=== PATIENT | female | born 1945 | race Caucasian/White ===

== ENCOUNTER → 2016-08-16 | Outpatient (CLI) | payer MEDICARE, MEDICAID ==
[2016-08-16 10:46] LABS: APPEARANCE,URINE CLEAR; BILIRUBIN,URINE NEGATIVE (NEGATIVE); GLUCOSE, URINE NEGATIVE (NEGATIVE); KETONES,URINE NEGATIVE (NEGATIVE); LEUKOCYTE ESTERASE,URINE NEGATIVE (NEGATIVE); NITRITE,URINE NEGATIVE (NEGATIVE); PROTEIN,URINE NEGATIVE (NEGATIVE); URINE SPECIFIC GRAVITY 1.012; UROBILINOGEN,URINE NEGATIVE mg/dL (<2.0)
[2016-08-16 10:52] LABS: ABSOLUTE EOSINOPHILS # (AUTO) 0.3 10^3/uL (0.0-0.6); ABSOLUTE LYMPHOCYTES (AUTO) 1.8 10^3/uL (0.5-4.7); ABSOLUTE MONOCYTES (AUTO) 0.6 10^3/uL (0.1-1.4); ABSOLUTE NEUT (AUTO) 5.2 10^3/uL (1.7-8.2); BASOPHILS % (AUTO) 0.5 % (0-2); EOSINOPHILS % (AUTO) 3.5 % (0-6); HEMATOCRIT 44.7 % (36.0-47.0); HEMOGLOBIN 14.5 g/dL (12.0-15.5); HGB HCT DIFFERENCE -1.2; LYMPHOCYTES % (AUTO) 22.4 % (13-45); MEAN CORPUSCULAR HEMOGLOBIN 29.9 pg (27.0-33.4); MEAN CORPUSCULAR HGB CONC 32.5 g/dL (32.0-36.0); MEAN CORPUSCULAR VOLUME 92 fl (80-97); MONOCYTES % (AUTO) 7.8 % (3-13); RED BLOOD COUNT 4.85 10^6/uL (3.72-5.28); RED CELL DISTRIBUTION WIDTH 13.2 % (11.5-14.0); SEGMENTED NEUTROPHILS % (AUTO) 65.8 % (42-78)
[2016-08-16 11:23] LABS: ALANINE AMINOTRANSFERASE 33 U/L (9-52); ALBUMIN 4.7 g/dL (3.5-5.0); ALKALINE PHOSPHATASE 77 U/L (38-126); ANION GAP 13 (5-19); ASPARTATE AMINO TRANSFERASE 31 U/L (14-36); BILIRUBIN,TOTAL 0.7 mg/dL (0.2-1.3); BLOOD UREA NITROGEN 15 mg/dL (7-20); CALCIUM 9.9 mg/dL (8.4-10.2); CARBON DIOXIDE 28 mmol/L (22-30); CHLORIDE 100 mmol/L (98-107); CHOLESTEROL 226.07 mg/dL (0-200); CREATININE RESULT 0.84 mg/dL (0.52-1.25); Direct HDL 71 mg/dL (>40); GLUCOSE 90 mg/dL (75-110); POTASSIUM 4.8 mmol/L (3.6-5.0); SODIUM 140.6 mmol/L (137-145); TOTAL PROTEIN 7.3 g/dL (6.3-8.2); TRIGLYCERIDES 86 mg/dL (<150)
[2016-08-16 11:29] LABS: ERYTHROCYTE SEDIMENTATION RATE 21 mm/hr (0-30)
[2016-08-16 11:34] LABS: DIRECT LDL 150 mg/dL (<100)
[2016-08-17 10:38] LABS: HEPATITIS C VIRUS AB <0.1 s/co ratio (0.0-0.9)
== END ==
LOC: OD 09:37
DX: D64.9 Anemia, unspecified (principal); I10 Essential (primary) hypertension; G25.81 Restless legs syndrome; J44.1 Chronic obstructive pulmonary disease with (acute) exacerbation; N64.4 Mastodynia; F03.91 Unspecified dementia, unspecified severity, with behavioral disturbance; M79.7 Fibromyalgia; Z79.899 Other long term (current) drug therapy; J96.11 Chronic respiratory failure with hypoxia; R51 Headache
CPT/HCPCS: 36415; 80053; 80061; 81001; 83036; 83540; 84443; 85025; 85652; 86803; 86804

== ENCOUNTER → 2016-08-16 | Outpatient (CLI) | payer MEDICARE, MEDICAID | LOC: RAD 12:10 | DX: R51 Headache (principal); J44.1 Chronic obstructive pulmonary disease with (acute) exacerbation; J96.11 Chronic respiratory failure with hypoxia; I10 Essential (primary) hypertension; Z79.899 Other long term (current) drug therapy; M79.7 Fibromyalgia; F09 Unspecified mental disorder due to known physiological condition; N61.1 Abscess of the breast and nipple | CPT/HCPCS: 70551; 76641 ==

== ENCOUNTER → 2016-10-08 | Outpatient (CLI) | payer MEDICARE, MEDICAID ==
--- NOTE | 2016-10-08 16:40 | XCELERA REPORT ---
[address] [address] Lower Extremity Arterial Evaluation Name: HERMAN DILLON Age: 70 yrs Gender: Female : 1945 Patient Status: Outpatient Patient Location: Study Date: 10/08/2016 12:17 PM Procedure: A color flow and duplex scan of the lower extremity arteries was performed bilaterally with velocity and waveform anaylsis. Ankle brachial indicies performed. Reason For Study: PVD Ordering Physician: SAMM SINGH Performed By: Grabiel Lemus Measurements and Calculations Right Left GIMP TACKER PSV 132.0 163.0 cm/sec Prox PFA PSV -63.4 -98.5 cm/sec Dist SFA PSV -100.4 -105.0 cm/sec Dist Pop A PSV 53.4 67.2 cm/sec Dist SERVANDO PSV 55.6 42.5 cm/sec Dist CARCASS WASHER PSV 81.0 55.3 cm/sec Micky Pedis PSV 39.2 24.0 cm/sec Right Side Arterial Evaluation Normal velocity and triphasic waveforms noted from the Common Femoral artery to the infrageniculate vessels. 0 % stenosis. Ankle Brachial index is 1.08. Left Side Arterial Evaluation Normal velocity and triphasic waveforms noted from the Common Femoral artery to the Popliteal artery. Biphasic to the infrageniculate vessels. 0-19% stenosis at the infrageniculate vessels. Ankle Brachial index is 1.14. Interpretation Summary No hemodynamically significant lesions in the right lower extremity only, on duplex imaging, at rest. Mild hemodynamically significant lesions in the left lower extremity only, on duplex imaging, at rest. : SAMM SINGH [place]
== END ==
LOC: SP 11:45
DX: I73.9 Peripheral vascular disease, unspecified (principal)
CPT/HCPCS: 93925

== ENCOUNTER → 2017-05-07 | Outpatient (CLI) | payer MEDICARE, MEDICAID ==
[2017-05-07 14:56] LABS: ABSOLUTE EOSINOPHILS # (AUTO) 0.1 10^3/uL (0.0-0.6); ABSOLUTE LYMPHOCYTES (AUTO) 2.3 10^3/uL (0.5-4.7); ABSOLUTE MONOCYTES (AUTO) 0.5 10^3/uL (0.1-1.4); ABSOLUTE NEUT (AUTO) 3.9 10^3/uL (1.7-8.2); BASOPHILS % (AUTO) 0.6 % (0-2); HEMATOCRIT 41.1 % (36.0-47.0); HGB HCT DIFFERENCE 0.9; LYMPHOCYTES % (AUTO) 33.3 % (13-45); MEAN CORPUSCULAR HEMOGLOBIN 30.1 pg (27.0-33.4); MEAN CORPUSCULAR HGB CONC 33.9 g/dL (32.0-36.0); MEAN CORPUSCULAR VOLUME 89 fl (80-97); MONOCYTES % (AUTO) 7.8 % (3-13); RED BLOOD COUNT 4.64 10^6/uL (3.72-5.28); RED CELL DISTRIBUTION WIDTH 13.1 % (11.5-14.0); SEGMENTED NEUTROPHILS % (AUTO) 57.3 % (42-78); WHITE BLOOD COUNT 6.9 10^3/uL (4.0-10.5)
[2017-05-07 15:10] LABS: ALANINE AMINOTRANSFERASE 35 U/L (9-52); ALBUMIN 4.4 g/dL (3.5-5.0); ALKALINE PHOSPHATASE 75 U/L (38-126); ANION GAP 13 (5-19); ASPARTATE AMINO TRANSFERASE 30 U/L (14-36); BILIRUBIN,DIRECT 0.3 mg/dL (0.0-0.4); BILIRUBIN,TOTAL 0.6 mg/dL (0.2-1.3); BLOOD UREA NITROGEN 12 mg/dL (7-20); CALCIUM 9.6 mg/dL (8.4-10.2); CARBON DIOXIDE 27 mmol/L (22-30); CHLORIDE 105 mmol/L (98-107); CHOLESTEROL 203.07 mg/dL (0-200); CREATININE RESULT 0.75 mg/dL (0.52-1.25); Direct HDL 60 mg/dL (>40); GLUCOSE 91 mg/dL (75-110); MAGNESIUM 1.8 mg/dL (1.6-2.3); POTASSIUM 4.5 mmol/L (3.6-5.0); SODIUM 144.7 mmol/L (137-145); TOTAL PROTEIN 6.8 g/dL (6.3-8.2); TRIGLYCERIDES 67 mg/dL (<150)
[2017-05-07 15:21] LABS: DIRECT LDL 125 mg/dL (<100)
== END ==
LOC: OD 14:13
PROVIDERS: ATTEND Internal Medicine
DX: E03.9 Hypothyroidism, unspecified (principal); I10 Essential (primary) hypertension; J44.9 Chronic obstructive pulmonary disease, unspecified; R53.83 Other fatigue; K21.9 Gastro-esophageal reflux disease without esophagitis
CPT/HCPCS: 36415; 80053; 80061; 83735; 84443; 85025

== ENCOUNTER 2017-08-19 14:18 | Emergency (ER) | payer MEDICARE, MEDICAID ==
[2017-08-19] MEDS ORDERED: IPRATROPIUM/ALBUTEROL 0.5-2.5 MG/3 ML AMPUL NEB ONE (15:44)
--- NOTE | 2017-08-19 15:45 | ER Document Report ---
ED Medical Screen (RME) - General Chief Complaint: Shortness Of Breath Stated Complaint: COUGH Time Seen by Provider: 08/19/17 15:43 Notes: Patient states over the last month she has been having progressively increasing shortness of breath and chest tightness. She states she has been on prednisone , amoxicillin, Zithromax, and doxycycline with no relief. She also has had no relief from her at home medications include inhalers. TRAVEL OUTSIDE OF THE [place] IN LAST 30 DAYS: No - Related Data Allergies/Adverse Reactions: latex Allergy (Severe, Verified 05/11/16 00:07) vomiting. itching codeine Adverse Reaction (Severe, Verified 05/11/16 00:07) vomiting, itching Peanuts Allergy (Severe, Uncoded 05/28/14 18:38) Throat swelling NICKEL Allergy (Mild, Uncoded 05/28/14 18:38) rash Past Medical History - Social History Chew tobacco use (# tins/day): No Frequency of alcohol use: None Drug Abuse: None - Past Medical History Cardiac Medical History: Reports: Hx Hypercholesterolemia, Hx Hypertension Denies: Hx Atrial Fibrillation, Hx Congestive Heart Failure, Hx Coronary Artery Disease, Hx Heart Attack, Hx Peripheral Vascular Disease, Hx Pulmonary Embolism, Hx Heart Murmur Pulmonary Medical History: Reports: Hx Asthma, Hx Bronchitis, Hx COPD - chronic Denies: Hx Pneumonia, Hx Respiratory Failure, Hx Sleep Apnea, Hx Tuberculosis Endocrine Medical History: Reports: Hx Hypothyroidism. Denies: Hx Graves' Disease Renal/ Medical History: Reports: Hx Kidney Stones. Denies: Hx End Stage Renal Disease, Hx Peritoneal Dialysis Malignancy Medical History: Denies: Hx Lung Cancer GI Medical History: Reports: Hx Gastroesophageal Reflux Disease, Hx Hiatal Hernia. Denies: Hx Crohn's Disease, Hx Irritable Bowel, Hx Liver Failure, Hx Pancreatitis, Hx Ulcer Musculoskeltal Medical History: Reports Hx Fibromyalgia, Denies Hx Muscular Dystrophy Psychiatric Medical History: Reports: Hx Anxiety, Hx Depression Traumatic Medical History: Denies: Hx Fractures Past Surgical History: Reports: Hx Appendectomy, Hx Breast Surgery - breast augmentation x2, Hx Cholecystectomy, Hx Hysterectomy, Hx Orthopedic Surgery - toe surgery R foot, Hx Tonsillectomy, Hx Tubal Ligation. Denies: Hx Bowel Surgery, Hx Colostomy, Hx Coronary Artery Bypass Graft, Hx Gastric Bypass Surgery, Hx Mastectomy, Hx Pacemaker - Immunizations Hx Diphtheria, Pertussis, Tetanus Vaccination: No Physical Exam - Vital signs Vitals: Temp Pulse Resp BP Pulse Ox 98.6 F 94 20 128/81 H 97 08/19/17 14:45 08/19/17 14:45 08/19/17 14:45 08/19/17 14:45 08/19/17 14:45 Course - Vital Signs Vital signs: Temp Pulse Resp BP Pulse Ox 98.6 F 94 20 128/81 H 97 08/19/17 14:45 08/19/17 14:45 08/19/17 14:45 08/19/17 14:45 08/19/17 14:45
--- NOTE | 2017-08-19 16:11 | RADIOLOGY REPORT (SQ) ---
EXAM DESCRIPTION: CHEST SINGLE VIEW COMPLETED DATE/TIME: 08/19/2017 4:02 pm REASON FOR STUDY: cough COMPARISON: 07/06/2016 NUMBER OF VIEWS: One view. TECHNIQUE: Single frontal radiographic view of the chest acquired. LIMITATIONS: None. FINDINGS: LUNGS AND PLEURA: No opacities, masses or pneumothorax. No pleural effusion. Attenuated bl ood vessels and flattened lion-diaphragms. MEDIASTINUM AND HILAR STRUCTURES: No masses. Contour normal. HEART AND VASCULAR STRUCTURES: Heart normal in size. Normal vasculature. BONES: No acute findings. HARDWARE: None in the chest. OTHER: No other significant finding. IMPRESSION: COPD. NO ACUTE RADIOGRAPHIC FINDING IN THE CHEST. TECHNICAL DOCUMENTATION: JOB ID: [id number] [employer]- All Rights Reserved
[2017-08-19 16:40] LABS: ABSOLUTE EOSINOPHILS # (AUTO) 0.1 10^3/uL (0.0-0.6); ABSOLUTE LYMPHOCYTES (AUTO) 2.3 10^3/uL (0.5-4.7); ABSOLUTE MONOCYTES (AUTO) 0.8 10^3/uL (0.1-1.4); ABSOLUTE NEUT (AUTO) 4.9 10^3/uL (1.7-8.2); BASOPHILS % (AUTO) 0.4 % (0-2); EOSINOPHILS % (AUTO) 1.6 % (0-6); HEMATOCRIT 43.9 % (36.0-47.0); HEMOGLOBIN 14.3 g/dL (12.0-15.5); LYMPHOCYTES % (AUTO) 28.2 % (13-45); MEAN CORPUSCULAR HEMOGLOBIN 29.4 pg (27.0-33.4); MEAN CORPUSCULAR HGB CONC 32.6 g/dL (32.0-36.0); MEAN CORPUSCULAR VOLUME 90 fl (80-97); MONOCYTES % (AUTO) 9.3 % (3-13); PLATELET COUNT 308 10^3/uL (150-450); RED BLOOD COUNT 4.87 10^6/uL (3.72-5.28); RED CELL DISTRIBUTION WIDTH 13.7 % (11.5-14.0); SEGMENTED NEUTROPHILS % (AUTO) 60.5 % (42-78); TOTAL CELLS COUNTED % (AUTO) 100 %; WHITE BLOOD COUNT 8.1 10^3/uL (4.0-10.5)
[2017-08-19 16:56] LABS: ALANINE AMINOTRANSFERASE 32 U/L (9-52); ALBUMIN 4.4 g/dL (3.5-5.0); ALKALINE PHOSPHATASE 70 U/L (38-126); ANION GAP 8 (5-19); ASPARTATE AMINO TRANSFERASE 27 U/L (14-36); BILIRUBIN,DIRECT 0.4 mg/dL (0.0-0.4); BILIRUBIN,TOTAL 0.5 mg/dL (0.2-1.3); BLOOD UREA NITROGEN 15 mg/dL (7-20); CALCIUM 10.1 mg/dL (8.4-10.2); CARBON DIOXIDE 28 mmol/L (22-30); CHLORIDE 104 mmol/L (98-107); GLUCOSE 99 mg/dL (75-110); POTASSIUM 4.7 mmol/L (3.6-5.0); SODIUM 140.4 mmol/L (137-145)
[2017-08-19 17:08] LABS: NT PRO BNP 142 pg/mL (5-900)
[2017-08-19 17:09] LABS: TROPONIN I < 0.012 ng/mL
[2017-08-19] MEDS ORDERED: MAG HYDROX/AL HYDROX/SIMETH SUSP 30 ML UDCUP PO ONE (20:14)
[2017-08-19] MEDS ORDERED: LIDOCAINE 2% VISCOUS SOLN 20 ML UDCUP PO ONE (20:14)
[2017-08-19] MEDS ORDERED: METOCLOPRAMIDE HCL ORAL SOLN 10 MG/10 ML UDCUP PO ONE (20:14)
[2017-08-19] MEDS ORDERED: FAMOTIDINE 20 MG TABLET PO ONE (20:14)
--- NOTE | 2017-08-19 20:19 | ER Document Report ---
ED General - General Chief Complaint: Shortness Of Breath Stated Complaint: COUGH Time Seen by Provider: 08/19/17 15:43 Notes: Patient is a 71-year-old female who presents with complaints of burping a white , bitter, clear mucus into her throat repeatedly over the last 3 weeks. She states that when this occurs it feels like she cannot breathe. Seems to be worse with exertion and when she lies flat. She notes that she has been treated repeatedly for these symptoms over the past 1 month with steroids and antibiotics for a presumed diagnosis of COPD exacerbation. However she notes that when she takes her inhalers it does not seem to help her symptoms. She reports that she has a history of similar symptoms in the past and used to take a PPI but discontinued it due to muscle aches. She believes that she has had symptoms since that time. She denies any focal abdominal pain with the exception of her epigastrium. She denies any melena, hematochezia or hematemesis. No fever or constitutional symptoms. She denies any chest pain. TRAVEL OUTSIDE OF THE [place] IN LAST 30 DAYS: No - Related Data Allergies/Adverse Reactions: latex Allergy (Severe, Verified 05/11/16 00:07) vomiting. itching codeine Adverse Reaction (Severe, Verified 05/11/16 00:07) vomiting, itching Peanuts Allergy (Severe, Uncoded 05/28/14 18:38) Throat swelling NICKEL Allergy (Mild, Uncoded 05/28/14 18:38) rash Past Medical History - General Information source: Patient - Social History Smoking Status: Former Smoker Chew tobacco use (# tins/day): No Frequency of alcohol use: None Drug Abuse: None Lives with: Family Family History: CAD Patient has suicidal ideation: No Patient has homicidal ideation: No - Past Medical History Cardiac Medical History: Reports: Hx Hypercholesterolemia, Hx Hypertension Denies: Hx Atrial Fibrillation, Hx Congestive Heart Failure, Hx Coronary Artery Disease, Hx Heart Attack, Hx Peripheral Vascular Disease, Hx Pulmonary Embolism, Hx Heart Murmur Pulmonary Medical History: Reports: Hx Asthma, Hx Bronchitis, Hx COPD - chronic Denies: Hx Pneumonia, Hx Respiratory Failure, Hx Sleep Apnea, Hx Tuberculosis Endocrine Medical History: Reports: Hx Hypothyroidism. Denies: Hx Graves' Disease Renal/ Medical History: Reports: Hx Kidney Stones. Denies: Hx End Stage Renal Disease, Hx Peritoneal Dialysis Malignancy Medical History: Denies: Hx Lung Cancer GI Medical History: Reports: Hx Gastroesophageal Reflux Disease, Hx Hiatal Hernia. Denies: Hx Crohn's Disease, Hx Irritable Bowel, Hx Liver Failure, Hx Pancreatitis, Hx Ulcer Musculoskeltal Medical History: Reports Hx Fibromyalgia, Denies Hx Muscular Dystrophy Psychiatric Medical History: Reports: Hx Anxiety, Hx Depression Traumatic Medical History: Denies: Hx Fractures Past Surgical History: Reports: Hx Appendectomy, Hx Breast Surgery - breast augmentation x2, Hx Cholecystectomy, Hx Hysterectomy, Hx Orthopedic Surgery - toe surgery R foot, Hx Tonsillectomy, Hx Tubal Ligation. Denies: Hx Bowel Surgery, Hx Colostomy, Hx Coronary Artery Bypass Graft, Hx Gastric Bypass Surgery, Hx Mastectomy, Hx Pacemaker - Immunizations Hx Diphtheria, Pertussis, Tetanus Vaccination: No Hx Pneumococcal Vaccination: 07/08/07 Review of Systems - Review of Systems Notes: Constitutional: Negative for fever. HENT: Negative for sore throat. Eyes: Negative for visual changes. Cardiovascular: Negative for chest pain. Respiratory: Positive for shortness of breath. Gastrointestinal: Positive for epigastric abdominal pain and vomiting Genitourinary: Negative for dysuria. Musculoskeletal: Negative for back pain. Skin: Negative for rash. Neurological: Negative for headaches, weakness or numbness. 10 point ROS negative except as marked above and in HPI. Physical Exam - Vital signs Vitals: Temp Pulse Resp BP Pulse Ox 98.6 F 94 20 128/81 H 97 08/19/17 14:45 08/19/17 14:45 08/19/17 14:45 08/19/17 14:45 08/19/17 14:45 Interpretation: Normal Notes: PHYSICAL EXAMINATION: GENERAL: Well-appearing, well-nourished and in no acute distress. HEAD: Atraumatic, normocephalic. EYES: Pupils equal round and reactive to light, extraocular movements intact, sclera anicteric, conjunctiva are normal. ENT: nares patent, oropharynx clear without exudates. Moist mucous membranes. NECK: Normal range of motion, supple without lymphadenopathy LUNGS: Breath sounds clear to auscultation bilaterally and equal. No wheezes rales or rhonchi. HEART: Regular rate and rhythm without murmurs ABDOMEN: Soft, epigastric abdominal tenderness no other localized areas of tenderness, normoactive bowel sounds. No guarding, no rebound. No masses appreciated. EXTREMITIES: Normal range of motion, no pitting or edema. No cyanosis. NEUROLOGICAL: No focal neurological deficits. Moves all extremities spontaneously and on command. PSYCH: Normal mood, normal affect. SKIN: Warm, Dry, normal turgor, no rashes or lesions noted. Course - Re-evaluation Re-evalutation: 08/19/17 20:15 Patient presents with epigastric abdominal pain with associated reflux symptoms most consistent with likely gastritis. Patient has been on steroids and antibiotics and was continuously for the past 6 weeks for possible COPD exacerbation. Patient has no signs of respiratory distress whatsoever, vitals within normal limits she is 100% on room air, no wheezing or tachypnea. Her chest x-ray is clear. Labs are unremarkable. Her main complaint is that she has a burning sensation in her epigastrium that often feels that she is coughing up a acidic mucousy substance. She said that this started after being on medicines for COPD for prolonged period of time which would make sense in the context of all the steroids she has received. She was started on famotidine and Carafate. She has no focal abdominal tenderness on examination to suggest a biliary pathology. No LFT changes. Based on history and exam, I do not suspect ACS, pulmonary embolus, SBO, mesenteric ischemia, acute pancreatitis, biliary pathology, or an abdominal aortic dissection. EKG and troponin are normal. No indication for current use of steroids today as patient does not appear to be having a COPD exacerbation. Patient has had improvement of symptoms here with a GI cocktail. At this time will discharge with return precautions and follow-up recommendations. Verbal discharge instructions given a the bedside and opportunity for questions given. Medication warnings reviewed. Patient is in agreement with this plan and has verbalized understanding of return precautions and the need for primary care follow-up in the next 24-72 hours. - Vital Signs Vital signs: Temp Pulse Resp BP Pulse Ox 98.6 F 94 21 H 159/80 H 98 08/19/17 14:45 08/19/17 14:45 08/19/17 20:01 08/19/17 20:01 08/19/17 20:01 - Laboratory Result Diagrams: 08/19/17 16:23 08/19/17 16:23 Laboratory results interpreted by me: 08/19/17 16:23 Est GFR (Non-Af Amer) 57 L - Diagnostic Test Radiology reviewed: Image reviewed, Reports reviewed Radiology results interpreted by me: 08/19/17 20:16 Chest x-ray: No acute infiltrate or pneumothorax - EKG Interpretation by Me Additional EKG results interpreted by me: 08/20/17 04:16 Normal sinus rhythm. Rate 93. No ST elevations or depressions. QTC is 433. Discharge - Discharge Clinical Impression: Exposure to the flu, Reflux esophagitis, Shortness of breath Condition: Good Disposition: HOME, SELF-CARE Additional Instructions: Your symptoms appear to be most consistent with stomach or upper intestinal irritation with associated reflux into your esophagus. Please begin taking famotidine 40 mg in the morning and 40 mg at night. This medicine can be purchased directly [id number]. You may also take medicine such as Pepto- Bismol or Tums to assist with your pain. Please avoid acidic and spicy foods including coffee, tea, sodas, fruit juices, citrus fruits, wild berries, and tomato based foods. We are not restarting steroids today as it does not appear that your COPD is currently an active part of your problem and the recurrent use of steroids and antibiotics may be the primary cause of your symptoms. Please return to emergency department immediately if you have worsening of your pain, shortness of breath, vomiting, become unable to exert yourself due to pain or difficulty breathing, you pass out, or have any pain that radiates into your arms, jaw, or back. Please also return if you have any additional symptoms that are concerning to you. Prescriptions: Oseltamivir Phosphate [Tamiflu 75 mg Capsule] 75 mg PO DAILY #10 capsule Sucralfate [Carafate 1 gm Tablet] 1 gm PO ACHS #120 tablet Referrals: RANDALL SHARP MD [Primary Care Provider] - Follow up as needed
[2017-08-19 20:22] VITALS: BP 159/80
--- NOTE | 2017-08-20 09:26 | EKG REPORT ---
SEVERITY:- NORMAL ECG - SINUS RHYTHM : Confirmed by: Osmin Christy 20-Aug-2017 09:26:10
== END 2017-08-19 20:35 | disposition home or self-care (01) ==
LOC: ER 14:18
DX: K21.0 Gastro-esophageal reflux disease with esophagitis (principal); R06.02 Shortness of breath; R05 Cough; R10.13 Epigastric pain; Z87.891 Personal history of nicotine dependence
CPT/HCPCS: 93005; 94640; 99285; 36415; 85025; 80053; 84484; 83880; 71045; 93010; J3490; A9270 ×2; J7620

== ENCOUNTER → 2017-10-29 | Outpatient (CLI) | payer MEDICARE, MEDICAID ==
[2017-10-29 13:51] LABS: ALANINE AMINOTRANSFERASE 38 U/L (9-52); ALBUMIN 4.5 g/dL (3.5-5.0); ALKALINE PHOSPHATASE 70 U/L (38-126); ANION GAP 9 (5-19); ASPARTATE AMINO TRANSFERASE 33 U/L (14-36); BILIRUBIN,DIRECT 0.3 mg/dL (0.0-0.4); BILIRUBIN,TOTAL 0.5 mg/dL (0.2-1.3); BLOOD UREA NITROGEN 14 mg/dL (7-20); CARBON DIOXIDE 31 mmol/L (22-30); CHLORIDE 103 mmol/L (98-107); GLUCOSE 95 mg/dL (75-110); POTASSIUM 5.4 mmol/L (3.6-5.0); TOTAL PROTEIN 7.1 g/dL (6.3-8.2)
== END ==
LOC: OD 12:16
PROVIDERS: ATTEND Family Medicine
DX: E03.9 Hypothyroidism, unspecified (principal); I10 Essential (primary) hypertension
CPT/HCPCS: 36415; 80053; 84443

== ENCOUNTER → 2017-11-14 | Outpatient (CLI) | payer MEDICARE, MEDICAID ==
--- NOTE | 2017-11-14 16:09 | RADIOLOGY REPORT (SQ) ---
EXAM DESCRIPTION: CT CHEST WITHOUT COMPLETED DATE/TIME: 11/14/2017 3:51 pm REASON FOR STUDY: R06.02 SHORTNESS OF BREATH R06.02 SHORTNESS OF BREATH COMPARISON: 11/24/2011. TECHNIQUE: CT scan performed of the chest without intravenous contrast. Images reviewed with lung, soft tissue and bone windows. Reconstructed coronal and sagittal MPR images reviewed. All images st ored on PACS. All CT scanners at this facility use dose modulation, iterative reconstruction, and/or weight based d osing when appropriate to reduce radiation dose to as low as reasonably achievable (ALARA). [facility]: Dose Right [facility]: CareDose [facility]: Dose Right [facility]: Teradose 4D [facility]: efectivox RADIATION DOSE: CT Rad equipment meets quality standard of care and radiation dose reduction techniq ues were employed. CTDIvol: 7.8 mGy. DLP: 279 mGy-cm. mGy. LIMITATIONS: No technical limitations. FINDINGS: LUNGS AND PLEURA: Centrilobular emphysema. No fibrosis. No pleural effusions. HILAR AND MEDIASTINAL STRUCTURES: No identified masses or abnormal nodes. No obvious aneurysm. HEART AND VASCULAR STRUCTURES: No aneurysm. No pericardial effusion. UPPER ABDOMEN: No significant findings. Limited exam. THYROID AND OTHER SOFT TISSUES: No masses. No adenopathy. BONES: No significant finding. HARDWARE: None in the chest. OTHER: No other significant findings. IMPRESSION: COPD. No acute findings in the chest. TECHNICAL DOCUMENTATION: JOB ID: [id number] Quality ID # [id number]: Final reports with documentation of one or more dose reduction techniques (e.g., Au tomated exposure control, adjustment of the mA and/or kV according to patient size, use of iterative reconstruction technique) 2010 [employer]- All Rights Reserved Reading location - IP/workstation name: [email or web address]
== END ==
LOC: RAD 15:59
PROVIDERS: ATTEND Physician Assistant
DX: J44.9 Chronic obstructive pulmonary disease, unspecified (principal); R06.02 Shortness of breath
CPT/HCPCS: 71250

== ENCOUNTER → 2018-02-17 | Outpatient (CLI) | payer MEDICARE, MEDICAID ==
[2018-02-17 17:16] LABS: ANION GAP 13 (5-19); BLOOD UREA NITROGEN 13 mg/dL (7-20); CALCIUM 9.2 mg/dL (8.4-10.2); CARBON DIOXIDE 26 mmol/L (22-30); CHLORIDE 106 mmol/L (98-107); GLUCOSE 88 mg/dL (75-110); POTASSIUM 4.4 mmol/L (3.6-5.0); SODIUM 145.1 mmol/L (137-145)
== END ==
LOC: OD 16:15
PROVIDERS: ATTEND Family Medicine
DX: E03.8 Other specified hypothyroidism (principal); E87.5 Hyperkalemia
CPT/HCPCS: 36415; 80048; 84443

== ENCOUNTER → 2018-04-07 | Outpatient (CLI) | payer MEDICARE, MEDICAID | LOC: OD 14:17 | PROVIDERS: ATTEND Family Medicine | DX: E03.9 Hypothyroidism, unspecified (principal) | CPT/HCPCS: 36415; 84443 ==

== ENCOUNTER → 2018-06-03 | Outpatient (CLI) | payer MEDICARE, MEDICAID ==
--- NOTE | 2018-06-03 16:09 | RADIOLOGY REPORT (SQ) ---
EXAM DESCRIPTION: CHEST PA/LATERAL COMPLETED DATE/TIME: 06/03/2018 3:45 pm REASON FOR STUDY: COPD;COUGH J44.1 CHRONIC OBSTRUCTIVE PULMONARY DISEASE W (ACUTE) EXACER R05 COUG H COMPARISON: 08/19/2017. NUMBER OF VIEWS: Two view. TECHNIQUE: Frontal and lateral radiographic views of the chest acquired. LIMITATIONS: None. FINDINGS: LUNGS AND PLEURA: No opacities, masses or pneumothorax. No pleural effusion. Attenuated bl ood vessels and flattened lion-diaphragms. MEDIASTINUM AND HILAR STRUCTURES: No masses. No contour abnormalities. HEART AND VASCULAR STRUCTURES: Heart normal in size and contour. No evidence for failure. BONES: No acute findings. HARDWARE: None in the chest. OTHER: No other significant finding. IMPRESSION: COPD. NO ACUTE RADIOGRAPHIC FINDING IN THE CHEST. TECHNICAL DOCUMENTATION: JOB ID: [id number] [email or web address]- All Rights Reserved Reading location - IP/workstation name: [email or web address]
== END ==
LOC: OD 15:34
PROVIDERS: ATTEND Family Medicine Geriatric Medicine
DX: J44.1 Chronic obstructive pulmonary disease with (acute) exacerbation (principal); R05 Cough
CPT/HCPCS: 71046

== ENCOUNTER → 2018-06-09 | Outpatient (CLI) | payer MEDICARE, MEDICAID ==
--- NOTE | 2018-06-09 15:05 | RADIOLOGY REPORT (SQ) ---
EXAM DESCRIPTION: CHEST PA/LATERAL COMPLETED DATE/TIME: 06/09/2018 2:50 pm REASON FOR STUDY: PRODUCTIVE COUGH COMPARISON: Two-view chest 06/03/2018 CT chest 11/14/2017 EXAM PARAMETERS: NUMBER OF VIEWS: two views TECHNIQUE: Digital Frontal and Lateral radiographic views of the chest acquired. RADIATION DOSE: NA LIMITATIONS: none FINDINGS: LUNGS AND PLEURA: Obstructive lung disease with hyperinflation and hyperlucency. Flatteni ng of the hemidiaphragms. No acute infiltrates. No pleural effusion or pneumothorax. MEDIASTINUM AND HILAR STRUCTURES: No masses or contour abnormalities. HEART AND VASCULAR STRUCTURES: Heart normal size. No evidence for failure. BONES: Osteoporotic without thoracic compression deformity HARDWARE: Clips right upper quadrant post cholecystectomy OTHER: No other significant finding. IMPRESSION: Obstructive lung disease. No acute infiltrates TECHNICAL DOCUMENTATION: JOB ID: [id number] [employer]- All Rights Reserved Reading location - IP/workstation name: [email or web address]
== END ==
LOC: OD 14:40
PROVIDERS: ATTEND Family Medicine
DX: J44.9 Chronic obstructive pulmonary disease, unspecified (principal); R05 Cough
CPT/HCPCS: 71046

== ENCOUNTER 2018-08-08 15:02 | Emergency (ER) | payer MEDICARE, MEDICAID ==
[2018-08-08 16:36] LABS: ABSOLUTE LYMPHOCYTES (AUTO) 0.6 10^3/uL (0.5-4.7); ABSOLUTE MONOCYTES (AUTO) 0.5 10^3/uL (0.1-1.4); ABSOLUTE NEUT (AUTO) 4.4 10^3/uL (1.7-8.2); BASOPHILS % (AUTO) 0.1 % (0-2); HEMATOCRIT 43.4 % (36.0-47.0); HEMOGLOBIN 14.6 g/dL (12.0-15.5); LYMPHOCYTES % (AUTO) 11.4 % (13-45); MEAN CORPUSCULAR HEMOGLOBIN 30.5 pg (27.0-33.4); MEAN CORPUSCULAR HGB CONC 33.7 g/dL (32.0-36.0); MEAN CORPUSCULAR VOLUME 91 fl (80-97); MONOCYTES % (AUTO) 9.1 % (3-13); PLATELET COUNT 359 10^3/uL (150-450); RED BLOOD COUNT 4.79 10^6/uL (3.72-5.28); RED CELL DISTRIBUTION WIDTH 13.2 % (11.5-14.0); SEGMENTED NEUTROPHILS % (AUTO) 79.4 % (42-78); TOTAL CELLS COUNTED % (AUTO) 100 %; WHITE BLOOD COUNT 5.6 10^3/uL (4.0-10.5)
[2018-08-08 16:47] LABS: ALANINE AMINOTRANSFERASE 21 U/L (9-52); ALBUMIN 4.4 g/dL (3.5-5.0); ALKALINE PHOSPHATASE 64 U/L (38-126); ANION GAP 11 (5-19); ASPARTATE AMINO TRANSFERASE 25 U/L (14-36); BILIRUBIN,DIRECT 0.2 mg/dL (0.0-0.4); BILIRUBIN,TOTAL 0.3 mg/dL (0.2-1.3); BLOOD UREA NITROGEN 20 mg/dL (7-20); CALCIUM 9.3 mg/dL (8.4-10.2); CARBON DIOXIDE 26 mmol/L (22-30); CHLORIDE 103 mmol/L (98-107); CREATINE KINASE 72 U/L (30-135); GLUCOSE 130 mg/dL (75-110); POTASSIUM 4.6 mmol/L (3.6-5.0); SODIUM 140.4 mmol/L (137-145); TOTAL PROTEIN 6.8 g/dL (6.3-8.2)
[2018-08-08 16:59] LABS: CREATINE KINASE MB 1.63 ng/mL (<4.55)
[2018-08-08 17:03] LABS: FREE T3 2.41 pg/mL (2.77-5.27); FREE T4 (FREE THYROXINE) 1.2 ng/dL (0.78-2.19)
[2018-08-08 17:06] LABS: TROPONIN I < 0.012 ng/mL
[2018-08-08 17:17] LABS: THYROID STIMULATING HORMONE 0.06 uIU/mL (0.47-4.68)
--- NOTE | 2018-08-08 17:28 | RADIOLOGY REPORT (SQ) ---
EXAM DESCRIPTION: CHEST 2 VIEWS COMPLETED DATE/TIME: 08/08/2018 5:17 pm REASON FOR STUDY: short of breath chest pain COMPARISON: 06/09/2018 NUMBER OF VIEWS: Two view. TECHNIQUE: Frontal and lateral radiographic views of the chest acquired. LIMITATIONS: None. FINDINGS: LUNGS AND PLEURA: No opacities, masses or pneumothorax. No pleural effusion. Attenuated bl ood vessels and flattened lion-diaphragms. MEDIASTINUM AND HILAR STRUCTURES: No masses. No contour abnormalities. HEART AND VASCULAR STRUCTURES: Heart normal in size and contour. No evidence for failure. BONES: No acute findings. HARDWARE: None in the chest. OTHER: No other significant finding. IMPRESSION: COPD. NO ACUTE RADIOGRAPHIC FINDING IN THE CHEST. TECHNICAL DOCUMENTATION: JOB ID: [id number] [employer] All Rights Reserved Reading location - IP/workstation name: [email or web address]
--- NOTE | 2018-08-08 18:25 | EKG REPORT ---
SEVERITY:- BORDERLINE ECG - SINUS TACHYCARDIA PROBABLE LEFT ATRIAL ABNORMALITY BORDERLINE T ABNORMALITIES, ANT-LAT LEADS : Confirmed by: Doug Marie MD 08-Aug-2018 18:24:59
--- NOTE | 2018-08-08 18:57 | RADIOLOGY REPORT (SQ) ---
EXAM DESCRIPTION: CT SOFT TISSUE NECK WITH COMPLETED DATE/TIME: 08/08/2018 6:40 pm REASON FOR STUDY: Swelling to left side of neck with difficulty swal COMPARISON: None. TECHNIQUE: Post IV contrasted scanning from skull base through lung apices with review of bone, soft tissue and lung windows. Reconstructed coronal and sagittal MPR images reviewed. All images stored on PACS. All CT scanners at this facility use dose modulation, iterative reconstruction, and/or weight based d osing when appropriate to reduce radiation dose to as low as reasonably achievable (ALARA). [facility]: Dose Right [facility]: CareDose [facility]: Dose Right [facility]: Teradose 4D [facility]: Pure [employer] TV CONTRAST TYPE AND DOSE: contrast/concentration: Isovue 350.00 mg/ml; Total Contrast Delivered: 75.0 ml; Total Saline Delivered: 55.0 ml RENAL FUNCTION: BUN 20 creatinine 0.9 RADIATION DOSE: CT Rad equipment meets quality standard of care and radiation dose reduction techniq ues were employed. CTDIvol: 9.1 mGy. DLP: 260 mGy-cm. . LIMITATIONS: None. FINDINGS: SKULL BASE: Intact. MAJOR SALIVARY GLANDS: The left submandibular gland is enlarged. LYMPHADENOPATHY: No adenopathy. MUCOSAL MASSES OR ASYMMETRY: No mucosal masses or asymmetry. LARYNX/CORDS: No abnormal findings. VASCULAR STRUCTURES: The major vessels are patent. LUNG APICES: Clear. BONES: Intact. THYROID: Normal size. No masses. PARANASAL SINUSES: Clear. OTHER: No other significant finding. IMPRESSION: The left submandibular gland is enlarged. Clinically correlate for Sialadenitis. TECHNICAL DOCUMENTATION: JOB ID: [id number] Quality ID # [id number]: Final reports with documentation of one or more dose reduction techniques (e.g., Au tomated exposure control, adjustment of the mA and/or kV according to patient size, use of iterative reconstruction technique) 2010 [employer]- All Rights Reserved Reading location - IP/workstation name: [email or web address]
--- NOTE | 2018-08-08 22:06 | ER Document Report ---
ED General - General Chief Complaint: Neck Swelling Stated Complaint: Neck pain Time Seen by Provider: 08/08/18 15:47 Primary Care Provider: LUCINA BARBA MD [Primary Care Provider] - Follow up as needed ANDRES RODAS DO [ASSOCIATE] - Follow up as needed Notes: Patient is a 72-year-old female with history of hypertension, COPD, presents complaining of 2-3 days of intermittent left facial and left neck swelling. States that noticed the area was more swollen this morning prompting her to come to the emergency department. States that the swelling is gone down substantially since that time. Food consumption seems to worsen swelling. Nothing seems to improve the swelling except time. No history of similar symptoms in the past. No trauma to the area. No difficulty breathing or swallowing. No fever or constitutional symptoms. Has not seen her primary care doctor regarding today's symptoms or concerns. TRAVEL OUTSIDE OF THE [place] IN LAST 30 DAYS: No - Related Data Allergies/Adverse Reactions: latex Allergy (Severe, Verified 08/08/18 15:03) vomiting. itching codeine Adverse Reaction (Severe, Verified 08/08/18 15:03) vomiting, itching Peanuts Allergy (Severe, Uncoded 05/28/14 18:38) Throat swelling NICKEL Allergy (Mild, Uncoded 05/28/14 18:38) rash Past Medical History - General Information source: Patient - Social History Smoking Status: Former Smoker Frequency of alcohol use: None Drug Abuse: None Lives with: Family Family History: Reviewed & Not Pertinent, CAD Patient has suicidal ideation: No Patient has homicidal ideation: No - Past Medical History Cardiac Medical History: Reports: Hx Hypercholesterolemia, Hx Hypertension Denies: Hx Atrial Fibrillation, Hx Congestive Heart Failure, Hx Coronary Artery Disease, Hx Heart Attack, Hx Peripheral Vascular Disease, Hx Pulmonary Embolism, Hx Heart Murmur Pulmonary Medical History: Reports: Hx Asthma, Hx Bronchitis, Hx COPD - chronic Denies: Hx Pneumonia, Hx Respiratory Failure, Hx Sleep Apnea, Hx Tuberculosis Endocrine Medical History: Reports: Hx Hypothyroidism. Denies: Hx Graves' Disease Renal/ Medical History: Reports: Hx Kidney Stones. Denies: Hx End Stage Renal Disease, Hx Peritoneal Dialysis Malignancy Medical History: Denies: Hx Lung Cancer GI Medical History: Reports: Hx Gastroesophageal Reflux Disease, Hx Hiatal Hernia. Denies: Hx Crohn's Disease, Hx Irritable Bowel, Hx Liver Failure, Hx Pancreatitis, Hx Ulcer Musculoskeletal Medical History: Reports Hx Fibromyalgia, Denies Hx Muscular Dystrophy Psychiatric Medical History: Reports: Hx Anxiety, Hx Depression Traumatic Medical History: Denies: Hx Fractures Past Surgical History: Reports: Hx Appendectomy, Hx Breast Surgery - breast augmentation x2, Hx Cholecystectomy, Hx Hysterectomy, Hx Orthopedic Surgery - toe surgery R foot, Hx Tonsillectomy, Hx Tubal Ligation. Denies: Hx Bowel Surgery, Hx Colostomy, Hx Coronary Artery Bypass Graft, Hx Gastric Bypass Surgery, Hx Mastectomy, Hx Pacemaker - Immunizations Hx Diphtheria, Pertussis, Tetanus Vaccination: No Hx Pneumococcal Vaccination: 07/08/07 Review of Systems - Review of Systems Notes: Constitutional: Negative for fever. HENT: Positive for left facial swelling below the level of the jaw Eyes: Negative for visual changes. Cardiovascular: Negative for chest pain. Respiratory: Negative for shortness of breath. Gastrointestinal: Negative for abdominal pain, vomiting or diarrhea. Genitourinary: Negative for dysuria. Musculoskeletal: Negative for back pain. Skin: Negative for rash. Neurological: Negative for headaches, weakness or numbness. 10 point ROS negative except as marked above and in HPI. Physical Exam - Vital signs Vitals: Temp Pulse Resp BP Pulse Ox 97.6 F 107 H 18 127/96 H 92 08/08/18 15:21 08/08/18 15:21 08/08/18 15:21 08/08/18 15:21 08/08/18 15:21 Interpretation: Tachycardic - Resolved at the time of my assessment, heart rate 73 Notes: PHYSICAL EXAMINATION: GENERAL: Well-appearing, well-nourished and in no acute distress. HEAD: Atraumatic, normocephalic. EYES: Pupils equal round and reactive to light, extraocular movements intact, sclera anicteric, conjunctiva are normal. ENT: nares patent, oropharynx clear without exudates. Moist mucous membranes. NECK: Normal range of motion, mild swelling below the left mandible otherwise unremarkable LUNGS: Breath sounds clear to auscultation bilaterally and equal. No wheezes rales or rhonchi. HEART: Regular rate and rhythm without murmurs ABDOMEN: Soft, nontender, normoactive bowel sounds. No guarding, no rebound. No masses appreciated. EXTREMITIES: Normal range of motion, no pitting or edema. No cyanosis. NEUROLOGICAL: No focal neurological deficits. Moves all extremities spontaneously and on command. PSYCH: Normal mood, normal affect. SKIN: Warm, Dry, normal turgor, no rashes or lesions noted. Course - Re-evaluation Re-evalutation: 08/08/18 22:04 Patient presents complaining of 3-4 days of left-sided facial swelling that comes and goes, appears to be related to when she is hungry or thinking about eating or attempts to eat. CT of the soft tissue of the neck was obtained in triage, appears to demonstrate sialadenitis on the left side which clinically correlates with the patient's symptomology. On exam the oropharynx is widely patent. No stridor. No limited neck range of motion. In triage a cardiac workup was undertaken as the patient had reported a brief episode of chest discomfort. The patient states that this was overblown, her main concern was regarding her neck discomfort and swelling. EKG, chest x-ray and single troponin unremarkable. I do not believe serial cardiac markers are indicated as the patient reports that this episode was extremity brief and was in the setting of discomfort after swallowing prednisone. I have advised the patient begins taking lemon drops or similar sour candy. ENT follow-up has been recommended. At this time will discharge with return precautions and follow-up recommendations. Verbal discharge instructions given a the bedside and opportunity for questions given. Medication warnings reviewed. Patient is in agreement with this plan and has verbalized understanding of return precautions and the need for primary care follow-up in the next 24-72 hours. - Vital Signs Vital signs: Temp Pulse Resp BP Pulse Ox 98.2 F 107 H 17 142/84 H 100 08/08/18 22:03 08/08/18 15:21 08/08/18 22:03 08/08/18 22:30 08/08/18 22:03 - Laboratory Result Diagrams: 08/08/18 16:16 08/08/18 16:16 Laboratory results interpreted by me: 08/08/18 08/08/18 08/08/18 16:16 16:16 16:16 Seg Neutrophils % 79.4 H Lymphocytes % 11.4 L Glucose 130 H TSH 0.06 L Free T3 pg/mL 2.41 L - Diagnostic Test Radiology reviewed: Reports reviewed Discharge - Discharge Clinical Impression: Sialadenitis, Facial swelling Condition: Good Disposition: HOME, SELF-CARE Additional Instructions: Swelling in your neck and face is likely due to a stone blocking one of your salivary glands. I recommend that you suck on hard/sour candies such as lemon drops to help release the stone. If this does not work to stop the swelling within then next 48-72 hours, please follow-up with ENT. Please return if you develop difficulty breathing, worsening swelling, fever greater than 100.4 F, or any other symptoms that are worrisome to you. Referrals: LUCINA BARBA MD [Primary Care Provider] - Follow up as needed ANDRES RODAS DO [ASSOCIATE] - Follow up as needed
[2018-08-08 22:42] VITALS: BP 142/84
== END 2018-08-08 22:30 | disposition home or self-care (01) ==
LOC: ER 15:02
DX: K11.20 Sialoadenitis, unspecified (principal); R22.0 Localized swelling, mass and lump, head; M54.2 Cervicalgia; R22.1 Localized swelling, mass and lump, neck; I10 Essential (primary) hypertension; J44.9 Chronic obstructive pulmonary disease, unspecified; Z87.891 Personal history of nicotine dependence
CPT/HCPCS: 36415; 70491; 71046; 80053; 82550; 82553; 84439; 84443; 84481; 84484; 85025; 93005; 93010; 99284

== ENCOUNTER → 2018-08-19 | Outpatient (CLI) | payer MEDICARE, MEDICAID ==
--- NOTE | 2018-08-19 10:35 | RADIOLOGY REPORT (SQ) ---
EXAM DESCRIPTION: CT CHEST WITH COMPLETED DATE/TIME: 08/19/2018 9:15 am REASON FOR STUDY: CHEST PAIN (R07.9) R07.9 CHEST PAIN, UNSPECIFIED COMPARISON: CT chest 11/14/2017, 11/24/2011 TECHNIQUE: CT scan of the chest performed using helical scanning technique with dynamic intravenous contrast injection. Images reviewed with lung, soft tissue and bone windows. Reconstructed coronal and sagittal MPR and MIP images reviewed. All images stored on PACS. All CT scanners at this facility use dose modulation, iterative reconstruction, and/or weight based d osing when appropriate to reduce radiation dose to as low as reasonably achievable (ALARA). [facility]: Dose Right [facility]: CareDose [facility]: Dose Right [facility]: Teradose 4D [facility]: [employer] CONTRAST TYPE AND DOSE: contrast/concentration: Isovue 350.00 mg/ml; Total Contrast Delivered: 80.0 ml; Total Saline Delivered: 55.0 ml RENAL FUNCTION: Creatinine 0.9 RADIATION DOSE: CT Rad equipment meets quality standard of care and radiation dose reduction techniq ues were employed. CTDIvol: 5.5 mGy. DLP: 210 mGy-cm. . LIMITATIONS: None. FINDINGS: LUNGS AND PLEURA: End-stage appearance of obstructive lung disease with diffuse hyperinfla tion and hyperlucency. Minimal airspace disease in the anterior aspect of the lingula, atelectasis v ersus pneumonia. This is best shown on coronal image 23, and should be followed to radiographic gonsalo ring. No pleural effusions. No pneumothorax. HILAR AND MEDIASTINAL STRUCTURES: No identified masses or abnormal nodes. HEART AND VASCULAR STRUCTURES: No aneurysm or dissection. No central pulmonary emboli. No pericardi al effusion. Minimal LAD coronary artery calcification HARDWARE: None in the chest. UPPER ABDOMEN: Clips post cholecystectomy THYROID AND OTHER SOFT TISSUES: On axial image 28, a 2 cm nodule is present along the deep aspect lef t breast. This is smaller than on the CT 11/14/2017, and is in the same area as a a peripherally calc ified left breast implant seen 2011 which has since been removed. Follow-up diagnostic mammograms an d left breast ultrasound are recommended for further evaluation BONES: No significant finding. OTHER: No other significant finding. IMPRESSION: Obstructive lung disease Minimal airspace disease in the lingula atelectasis versus pneumonia. This should be followed to rad iographic clearing. 2 cm left breast nodule along the chest wall, likely postsurgical/postinflammatory change. However, follow-up diagnostic left breast mammograms and ultrasound are recommended. TECHNICAL DOCUMENTATION: JOB ID: [id number] Quality ID # [id number]: Final reports with documentation of one or more dose reduction techniques (e.g., Au tomated exposure control, adjustment of the mA and/or kV according to patient size, use of iterative reconstruction technique) 2010 [employer] All Rights Reserved Reading location - IP/workstation name: [email or web address]
== END ==
LOC: RAD 08:29
PROVIDERS: ATTEND Internal Medicine
DX: R07.9 Chest pain, unspecified (principal); J44.9 Chronic obstructive pulmonary disease, unspecified; N63.20 Unspecified lump in the left breast, unspecified quadrant
CPT/HCPCS: 71260

== ENCOUNTER → 2018-09-23 | Outpatient (CLI) | payer MEDICARE, MEDICAID ==
--- NOTE | 2018-09-23 11:38 | RADIOLOGY REPORT (SQ) ---
EXAM DESCRIPTION: CHEST PA/LATERAL COMPLETED DATE/TIME: 09/23/2018 11:27 am REASON FOR STUDY: CHRONIC OBSTRUCTIVE PULMONARY DISEASE, UNSPECIFIED COMPARISON: 08/08/2018. EXAM PARAMETERS: NUMBER OF VIEWS: two views TECHNIQUE: Digital Frontal and Lateral radiographic views of the chest acquired. RADIATION DOSE: NA LIMITATIONS: none FINDINGS: LUNGS AND PLEURA: Emphysematous change with flattening of the diaphragm and hyperinflation . No focal airspace disease. No pleural effusion or pneumothorax. MEDIASTINUM AND HILAR STRUCTURES: No masses or contour abnormalities. HEART AND VASCULAR STRUCTURES: Atherosclerotic aorta. Normal heart size. BONES: No acute findings. HARDWARE: None in the chest. OTHER: No other significant finding. IMPRESSION: Emphysematous change without evidence of acute cardiopulmonary process. TECHNICAL DOCUMENTATION: JOB ID: [id number] [employer]- All Rights Reserved Reading location - IP/workstation name: [email or web address]
[2018-09-23 12:20] LABS: ABSOLUTE EOSINOPHILS # (AUTO) 0.1 10^3/uL (0.0-0.6); ABSOLUTE MONOCYTES (AUTO) 0.6 10^3/uL (0.1-1.4); ABSOLUTE NEUT (AUTO) 3.1 10^3/uL (1.7-8.2); BASOPHILS % (AUTO) 0.6 % (0-2); EOSINOPHILS % (AUTO) 2.2 % (0-6); HEMATOCRIT 41.9 % (36.0-47.0); MEAN CORPUSCULAR HGB CONC 33.5 g/dL (32.0-36.0); MEAN CORPUSCULAR VOLUME 93 fl (80-97); MONOCYTES % (AUTO) 10.5 % (3-13); PLATELET COUNT 325 10^3/uL (150-450); RED BLOOD COUNT 4.53 10^6/uL (3.72-5.28); RED CELL DISTRIBUTION WIDTH 14.2 % (11.5-14.0); SEGMENTED NEUTROPHILS % (AUTO) 52.7 % (42-78); TOTAL CELLS COUNTED % (AUTO) 100 %; WHITE BLOOD COUNT 5.9 10^3/uL (4.0-10.5)
[2018-09-23 12:43] LABS: ALANINE AMINOTRANSFERASE 26 U/L (9-52); ALBUMIN 4.5 g/dL (3.5-5.0); ALKALINE PHOSPHATASE 67 U/L (38-126); ANION GAP 10 (5-19); ASPARTATE AMINO TRANSFERASE 29 U/L (14-36); BILIRUBIN,DIRECT 0.3 mg/dL (0.0-0.4); BILIRUBIN,TOTAL 0.7 mg/dL (0.2-1.3); BLOOD UREA NITROGEN 10 mg/dL (7-20); CARBON DIOXIDE 28 mmol/L (22-30); CHLORIDE 104 mmol/L (98-107); CHOLESTEROL 218.54 mg/dL (0-200); GLUCOSE 93 mg/dL (75-110); POTASSIUM 4.7 mmol/L (3.6-5.0); SODIUM 141.9 mmol/L (137-145); TOTAL PROTEIN 6.8 g/dL (6.3-8.2); TRIGLYCERIDES 132 mg/dL (<150)
[2018-09-23 12:53] LABS: DIRECT LDL 132 mg/dL (<100)
== END ==
LOC: OD 11:00
PROVIDERS: ATTEND Family Medicine
DX: R53.83 Other fatigue (principal); E03.9 Hypothyroidism, unspecified; Z13.220 Encounter for screening for lipoid disorders; J44.9 Chronic obstructive pulmonary disease, unspecified
CPT/HCPCS: 36415; 71046; 80053; 80061; 84443; 85025

== ENCOUNTER → 2019-04-06 | Outpatient (CLI) | payer MEDICARE, MEDICAID | LOC: OD 14:03 | PROVIDERS: ATTEND Family Medicine | DX: E03.9 Hypothyroidism, unspecified (principal) | CPT/HCPCS: 36415; 84443 ==

== ENCOUNTER 2019-05-28 14:36 | Observation (INO) | payer MEDICARE, MEDICAID ==
[2019-05-28] MEDS ORDERED: ASPIRIN 81 MG TABLET, CHEWABLE PO ONE ×2 (15:18→18:30)
--- NOTE | 2019-05-28 15:23 | ER Document Report ---
ED Medical Screen (RME) - General Chief Complaint: Chest Pain Stated Complaint: CHEST PAIN Time Seen by Provider: 05/28/19 15:17 Primary Care Provider: LUCINA BARBA MD [Primary Care Provider] - Follow up as needed TRAVEL OUTSIDE OF THE [place] IN LAST 30 DAYS: No - HPI Notes: 05/28/19 15:23 73-year-old female to the emergency department with persistent midsternal chest pain with associated shortness of breath has been getting worse for the past 3 weeks. She states that she saw her primary care and she was given a "shot", prednisone and ibuprofen. She states that despite this she has gotten worse. She states that she notices that her chest pain gets worse with exertion and she becomes much more short of breath as well. She denies any leg swelling or recent travel. She denies any chills but does endorse subjective fevers. She did not measure them at home. She states that she does have COPD and she uses oxygen at home. I performed a brief medical screening exam on patient and determined that she will need further management and evaluation by main side ER provider. I placed initial orders to expedite her care as well as imaging studies. - Related Data Allergies/Adverse Reactions: latex Allergy (Severe, Verified 05/28/19 15:18) vomiting. itching codeine Adverse Reaction (Severe, Verified 05/28/19 15:18) vomiting, itching Peanuts Allergy (Severe, Uncoded 05/28/19 15:18) Throat swelling NICKEL Allergy (Mild, Uncoded 05/28/19 15:18) rash Past Medical History - Past Medical History Cardiac Medical History: Reports: Hx Hypercholesterolemia, Hx Hypertension Denies: Hx Atrial Fibrillation, Hx Congestive Heart Failure, Hx Coronary Triny ry Disease, Hx Heart Attack, Hx Peripheral Vascular Disease, Hx Pulmonary Embolism, Hx Heart Murmur Pulmonary Medical History: Reports: Hx Asthma, Hx Bronchitis, Hx COPD - chronic Denies: Hx Pneumonia, Hx Respiratory Failure, Hx Sleep Apnea, Hx Tuberculosis Endocrine Medical History: Reports: Hx Hypothyroidism. Denies: Hx Graves' Disease Renal/ Medical History: Reports: Hx Kidney Stones. Denies: Hx End Stage Renal Disease, Hx Peritoneal Dialysis Malignancy Medical History: Denies: Hx Lung Cancer GI Medical History: Reports: Hx Gastroesophageal Reflux Disease, Hx Hiatal Hernia. Denies: Hx Crohn's Disease, Hx Irritable Bowel, Hx Liver Failure, Hx Pancreatitis, Hx Ulcer Musculoskeltal Medical History: Reports Hx Fibromyalgia, Denies Hx Muscular Dystrophy, Denies Hx Systemic Lupus Erythematosus Psychiatric Medical History: Reports: Hx Anxiety, Hx Depression Traumatic Medical History: Denies: Hx Fractures Past Surgical History: Reports: Hx Appendectomy, Hx Breast Surgery - breast augmentation x2, Hx Cholecystectomy, Hx Hysterectomy, Hx Orthopedic Surgery - toe surgery R foot, Hx Tonsillectomy, Hx Tubal Ligation. Denies: Hx Bowel Surgery, Hx Colostomy, Hx Coronary Artery Bypass Graft, Hx Gastric Bypass Surgery, Hx Mastectomy, Hx Pacemaker - Immunizations Hx Diphtheria, Pertussis, Tetanus Vaccination: No Physical Exam - Vital signs Vitals: Temp Pulse Resp BP 97.3 F 101 H 22 H 150/84 H 05/28/19 14:49 05/28/19 14:49 05/28/19 14:49 05/28/19 14:49 Course - Vital Signs Vital signs: Temp Pulse Resp BP Pulse Ox 97.3 F 101 H 22 H 150/84 H 05/28/19 14:49 05/28/19 14:49 05/28/19 14:49 05/28/19 14:49 Doctor's Discharge - Discharge Referrals: LUCINA BARBA MD [Primary Care Provider] - Follow up as needed
[2019-05-28 15:59] LABS: ABSOLUTE EOSINOPHILS # (AUTO) 0.1 10^3/uL (0.0-0.6); ABSOLUTE MONOCYTES (AUTO) 0.7 10^3/uL (0.1-1.4); ABSOLUTE NEUT (AUTO) 4.5 10^3/uL (1.7-8.2); BASOPHILS % (AUTO) 0.6 % (0-2); EOSINOPHILS % (AUTO) 1.2 % (0-6); HEMATOCRIT 41.8 % (36.0-47.0); HEMOGLOBIN 13.8 g/dL (12.0-15.5); LYMPHOCYTES % (AUTO) 27.1 % (13-45); MEAN CORPUSCULAR HEMOGLOBIN 29.6 pg (27.0-33.4); MEAN CORPUSCULAR HGB CONC 33.1 g/dL (32.0-36.0); MEAN CORPUSCULAR VOLUME 89 fl (80-97); MONOCYTES % (AUTO) 9.4 % (3-13); PLATELET COUNT 288 10^3/uL (150-450); RED BLOOD COUNT 4.68 10^6/uL (3.72-5.28); RED CELL DISTRIBUTION WIDTH 13.6 % (11.5-14.0); SEGMENTED NEUTROPHILS % (AUTO) 61.7 % (42-78); TOTAL CELLS COUNTED % (AUTO) 100 %; WHITE BLOOD COUNT 7.3 10^3/uL (4.0-10.5)
--- NOTE | 2019-05-28 16:03 | RADIOLOGY REPORT (SQ) ---
EXAM DESCRIPTION: CHEST 2 VIEWS COMPLETED DATE/TIME: 05/28/2019 3:29 pm REASON FOR STUDY: chest pain, SOB COMPARISON: 09/23/2018 EXAM PARAMETERS: NUMBER OF VIEWS: two views TECHNIQUE: Digital Frontal and Lateral radiographic views of the chest acquired. RADIATION DOSE: NA LIMITATIONS: none FINDINGS: LUNGS AND PLEURA: Hyperexpansion of the lungs with no infiltrate, effusion, or mass. MEDIASTINUM AND HILAR STRUCTURES: No masses or contour abnormalities. HEART AND VASCULAR STRUCTURES: Heart normal size. No evidence for failure. BONES: No acute findings. HARDWARE: None in the chest. OTHER: No other significant finding. IMPRESSION: Chronic lung changes with no acute cardiopulmonary findings. TECHNICAL DOCUMENTATION: JOB ID: [id number] [employer]- All Rights Reserved Reading location - IP/workstation name: [email or web address]
[2019-05-28 16:07] LABS: ALBUMIN 4.3 g/dL (3.5-5.0); ALKALINE PHOSPHATASE 68 U/L (38-126); ANION GAP 9 (5-19); ASPARTATE AMINO TRANSFERASE 39 U/L (14-36); BILIRUBIN,DIRECT 0.1 mg/dL (0.0-0.4); BILIRUBIN,TOTAL 0.5 mg/dL (0.2-1.3); BLOOD UREA NITROGEN 14 mg/dL (7-20); CALCIUM 9.5 mg/dL (8.4-10.2); CARBON DIOXIDE 29 mmol/L (22-30); CHLORIDE 108 mmol/L (98-107); GLUCOSE 89 mg/dL (75-110); POTASSIUM 3.9 mmol/L (3.6-5.0)
[2019-05-28 16:18] LABS: NT PRO BNP 606 pg/mL (<125)
[2019-05-28 16:24] LABS: TROPONIN I < 0.012 ng/mL
--- NOTE | 2019-05-28 17:58 | EKG REPORT ---
SEVERITY:- ABNORMAL ECG - SINUS TACHYCARDIA ATRIAL PREMATURE COMPLEX LA ENLARGEMENT : Confirmed by: Doug Marie MD 28-May-2019 17:57:02
[2019-05-28] MEDS ORDERED: ONDANSETRON HCL INJ/PF 4 MG/2 ML SDV IV ONE (21:12)
[2019-05-28 21:45] LABS: ARTERIAL BLOOD BASE EXCESS 0.4 mmol/L; ARTERIAL BLOOD HCO3 24.9 mmol/L (20-24); ARTERIAL BLOOD PCO2 39.8 mmHg (35-45); ARTERIAL BLOOD PH 7.41 (7.35-7.45); ARTERIAL BLOOD PO2 80.4 mmHg (80-100); ARTERIAL BLOOD TOTAL CO2 26.1 mmol/L (21-25)
[2019-05-28] MEDS ORDERED: IPRATROPIUM/ALBUTEROL 0.5-2.5 MG/3 ML AMPUL NEB ONE ×2 (21:49→22:32)
[2019-05-28 21:52] LABS: ARTERIAL BLOOD FIO2 ROOM AIR
--- NOTE | 2019-05-28 22:37 | RADIOLOGY REPORT (SQ) ---
CT CHEST ANGIOGRAPHY WITHOUT THEN WITH IV CONTRAST EXAM DATE: 05/28/2019 8:28 PM FOLDER SEAMER HISTORY: Shortness of breath. COMPARISON: None. TECHNIQUE: CT angiogram of the chest with IV contrast. 3-D MIP images were obtained in coronal and sagittal reconstructions. This exam was performed according to our departmental dose-optimization program, which includes automated exposure control, adjustment of the mA and/or kV according to patient size and/or use of iterative reconstruction technique. FINDINGS: No filling defects are seen in the pulmonary trunk or the left and right main pulmonary artery. There is limited evaluation of the segmental branches due to suboptimal bolus timing. The thyroid gland is normal. No mediastinal or hilar adenopathy. The heart size is normal without pericardial effusion. The thoracic aorta is normal caliber. No consolidation, pleural effusion, or pneumothorax is identified. There is diffuse centrilobular emphysema. The visualized upper abdomen demonstrates no acute findings. No acute osseous findings are seen. IMPRESSION: No central pulmonary embolism.
--- NOTE | 2019-05-28 23:05 | ER Document Report ---
Entered by SAMANTHA CAESY SCRIBE 05/28/192026 Acting as scribe for:NENITA HDZ IV, MD ED General - General Chief Complaint: Chest Pain Stated Complaint: CHEST PAIN Time Seen by Provider: 05/28/19 15:17 Mode of Arrival: Ambulatory Information source: Patient Notes: This 73-year-old female patient with a history of COPD presents to the emergency department today with complaints of shortness of breath. Patient mentions that she had a fall 4 to 5 weeks ago onto brick and had some pain after that but she is not sure if this is related to her shortness of breath today. Patient states that "her breathing has been great" for the last year until about a week ago. Patient also mentions some chest wall pain. Pertinent PMHx/PSHx: COPD on Trulicity - additional PMHx/PSHx not pertinent to this visit as recorded. PCP: Fariha Fulton TRAVEL OUTSIDE OF THE [place] IN LAST 30 DAYS: No - Related Data Allergies/Adverse Reactions: latex Allergy (Severe, Verified 05/28/19 15:18) vomiting. itching codeine Adverse Reaction (Severe, Verified 05/28/19 15:18) vomiting, itching Peanuts Allergy (Severe, Uncoded 05/28/19 15:18) Throat swelling NICKEL Allergy (Mild, Uncoded 05/28/19 15:18) rash Past Medical History - General Information source: Patient - Social History Smoking Status: Former Smoker - quit x10-12 years ago Cigarette use (# per day): No Chew tobacco use (# tins/day): No Frequency of alcohol use: None Drug Abuse: None Lives with: Family Family History: Reviewed & Not Pertinent, CAD Patient has suicidal ideation: No Patient has homicidal ideation: No - Past Medical History Cardiac Medical History: Reports: Hx Hypercholesterolemia, Hx Hypertension Pulmonary Medical History: Reports: Hx Asthma, Hx Bronchitis, Hx COPD - chronic Endocrine Medical History: Reports: Hx Hypothyroidism Renal/ Medical History: Reports: Hx Kidney Stones GI Medical History: Reports: Hx Gastroesophageal Reflux Disease, Hx Hiatal Hernia Musculoskeletal Medical History: Reports Hx Fibromyalgia Psychiatric Medical History: Reports: Hx Anxiety, Hx Depression Past Surgical History: Reports: Hx Appendectomy, Hx Breast Surgery - breast augmentation x2, Hx Cholecystectomy, Hx Hysterectomy, Hx Orthopedic Surgery - toe surgery R foot, Hx Tonsillectomy, Hx Tubal Ligation - Immunizations Hx Diphtheria, Pertussis, Tetanus Vaccination: No Hx Pneumococcal Vaccination: 07/08/07 Review of Systems - Review of Systems Constitutional: No symptoms reported EENT: No symptoms reported Cardiovascular: See HPI, Chest pain Respiratory: See HPI, Short of breath Gastrointestinal: No symptoms reported Genitourinary: No symptoms reported Female Genitourinary: No symptoms reported Musculoskeletal: No symptoms reported Skin: No symptoms reported Hematologic/Lymphatic: No symptoms reported Neurological/Psychological: No symptoms reported -: Yes All other systems reviewed and negative Physical Exam - Vital signs Vitals: Temp Pulse Resp BP 97.3 F 101 H 22 H 150/84 H 05/28/19 14:49 05/28/19 14:49 05/28/19 14:49 05/28/19 14:49 - Notes Notes: Physical Exam: General: Alert, appears anxious. HEENT: Normocephalic. Atraumatic. PERRL. Extraocular movements intact. Oropharynx clear. Neck: Supple. Non-tender. Respiratory: No respiratory distress. Clear and equal breath sounds bilaterally. Cardiovascular: Regular rate and rhythm. Abdominal: Normal Inspection. Non-tender. No distension. Normal Bowel Sounds. Back: No gross abnormalities. Extremities: Moves all four extremities. Upper extremities: Normal inspection. Normal ROM. Lower extremities: Normal inspection. No edema. Normal ROM. Neurological: Normal cognition. AAOx4. Normal speech. Psychological: Intermittently tearful. Skin: Warm. Dry. Normal color. Course - Re-evaluation Re-evalutation: 05/28/19 23:52 At this MD noted that when the patient returned from CTA of the chest that she was very tachypneic sitting upright in bed and had audible wheezing. This MD ordered a DuoNeb treatment and put the patient on 2 L of O2. The patient currently is not wheezing but remains tachypneic. The patient has stated to this MD that she is having to sit upright in bed for the past week with 2 pillows in order to sleep. This MD reviewed the patient's work-up, was concerned about the patient's BNP, advised the patient and patient's family that her symptoms are consistent with new onset CHF and that the patient would benefit from admission. This MD attempted to present the patient to Dr. Garcia, hospitalist. He stated that he was surprised that I want to admit her given her vitals were "surprisingly stable." He then went on to state that the patient is probably suffering from a "Klonopin deficit." This MD asked if Dr. Garcia wanted me to walk the patient around the ER with a pulse ox to reproduce the symptomatology this MD noted in the ER. He said he would like for me to do this and repeat a blood gas before calling him back. - Vital Signs Vital signs: Temp Pulse Resp BP Pulse Ox 97.3 F 101 H 26 H 169/76 H 100 05/28/19 14:49 05/28/19 14:49 05/28/19 22:00 05/28/19 21:00 05/28/19 22:00 - Laboratory Result Diagrams: 05/28/19 15:40 05/28/19 15:40 Laboratory results interpreted by me: 05/28/19 05/28/19 05/28/19 15:40 15:40 21:32 ABG HCO3 24.9 H ABG Total CO2 26.1 H Sodium 145.5 H Chloride 108 H AST 39 H NT-Pro-B Natriuret Pep 606 H - EKG Interpretation by Me Additional EKG results interpreted by me: 05/28/19 20:30 EKG performed on 05/28/2019 at 1443 hrs. was interpreted by this MD. Findings: Sinus rhythm, rate 99, axis is normal, pes preceding QRS complexes, QRS complexes are normal, no obvious ST segment elevation or depression is seen consistent with acute myocardial ischemia or infarction. Impression normal sinus rhythm with nonspecific ST segments. Discharge - Discharge Clinical Impression: Acute dyspnea, History of COPD, Elevated brain natriuretic peptide (BNP) level Condition: Good Disposition: ADMITTED OBSERVATION Admitting Provider: Jose (Hospitalist) Unit Admitted: Telemetry I personally performed the services described in the documentation, reviewed and edited the documentation which was dictated to the scribe in my presence, and it accurately records my words and actions.
[2019-05-29] MEDS ORDERED: ACETAMINOPHEN 325 MG TABLET PO PRN (02:00)
[2019-05-29] MEDS ORDERED: MAG HYDROX/AL HYDROX/SIMETH SUSP 30 ML UDCUP PO PRN (02:00)
[2019-05-29] MEDS ORDERED: MAGNESIUM HYDROXIDE SUSP 30 ML UDCUP PO PRN (02:00)
[2019-05-29] MEDS ORDERED: IPRATROPIUM/ALBUTEROL 0.5-2.5 MG/3 ML AMPUL NEB PRN (02:00)
[2019-05-29] MEDS ORDERED: TRAZODONE HCL 50 MG TABLET PO ONE (02:03)
[2019-05-29] MEDS: HEPARIN SOD (PORCINE) 5,000 UNIT/ML 1 ML VIAL SUBCUT SCH ×3 (05:25→21:55)
--- NOTE | 2019-05-29 05:46 | PDOC H&P ---
History of Present Illness Admission Date/PCP: 05/29/19 02:13 LUCINA BARBA MD Patient complains of: Shortness of breath and wheeze History of Present Illness: HERMAN DILLON is a 73 year old female with a past medical history of COPD on home O2, GERD, hypothyroidism and anxiety. Presents after approximately 2 weeks of increasing shortness of breath associated with tremor and anxiety. In the emergency room she is found to have tachypnea during ambulation and mildly elevated BNP. She receives breathing treatments and referred to the hospitalist for evaluation. Patient has a nervous affect, flight of ideas with perseveration on suspected breast augmentation complications. Her son at bedside relates this is going on for a couple of weeks. Patient has had treatment of her shortness of breath with steroids without significant improvement. She is otherwise had Synthyroid dose increase from 50 mcg to 100 mcg 1 month ago. Past Medical History Cardiac Medical History: Reports: Hyperlipidema, Hypertension Denies: Atrial Fibrillation, Congestive Heart Failure, Coronary Artery Disease, Myocardial Infarction, Peripheral Vascular Disease, Pulmonary Embolism, Heart Murmur Pulmonary Medical History: Reports: Asthma, Bronchitis, Chronic Obstructive Pulmonary Disease (COPD) - chronic Denies: Pneumonia, Respiratory Failure, Sleep Apnea, Tuberculosis Endocrine Medical History: Reports: Hypothyroidism Renal/ Medical History: Denies: End Stage Renal Disease Malignancy Medical History: Denies: Lung Cancer GI Medical History: Reports: Gastroesophageal Reflux Disease, Hiatal Hernia Denies: Crohn's Disease Musculoskeltal Medical History: Reports: Fibromyalgia Psychiatric Medical History: Reports: Depression, General Anxiety Disorder Past Surgical History Past Surgical History: Reports: Appendectomy, Cholecystectomy, Hysterectomy, Orthopedic Surgery - toe surgery R foot, Tonsillectomy, Tubal Ligation Denies: Amputation, Colostomy, Coronary Artery Bypass Graft, Gastric Bypass Surgery, Mastectomy, Pacemaker Social History Information Source: Patient, Relative, [facility] Records Lives with: Family Smoking Status: Former Smoker Electronic Cigarette use?: No Hx Recreational Drug Use: No Hx Prescription Drug Abuse: No - Advance Directive Resuscitation Status: Full Code Family History Family History: CAD, Hypertension Parental Family History Reviewed: Yes Children Family History Reviewed: Yes Sibling(s) Family History Reviewed.: Yes Medication/Allergy Home Medications: Aspirin [Aspirin 81 mg Chewable Tablet] 81 mg PO DAILY 11/21/11 Cyclobenzaprine HCl [Flexeril 10 Mg Tablet] 10 mg PO ASDIR PRN 11/21/11 Dexlansoprazole [Dexilant] 60 mg PO DAILY 11/21/11 Ezetimibe/Simvastatin [Vytorin 10-10 Mg Tablet] 1 each PO QHS 11/21/11 Hydrocodone Bit/Acetaminophen [[place] 5-325 Tablet] 1 each PO Q12HP PRN 11/21/11 Levothyroxine Sodium [Synthroid 112 Mcg Tablet] 112 mcg PO DAILY 11/21/11 Mometasone Furoate [Nasonex] 17 gm NS DAILYP PRN 11/21/11 [place]-3 Fatty Acids/Fish Oil [Fish Oil 1,200 mg Softgel] 1,400 units PO DAILY 11/21/11 Sertraline HCl 100 mg PO DAILY 11/21/11 Ubidecarenone [Co Q-10] 200 mg PO DAILY 11/21/11 Vitamin B Complex/Vit B12 [B Complex with B-12 Drops Sl] 2,500 mcg PO DAILY 11/21/11 Prednisone [Deltasone 10 mg Tablet] 40 mg PO ASDIR PRN 11/23/11 Fluticasone Propionate [Flonase Nasal [place] 50 Mcg/[place]] 1 spray NAREB DAILY 11/26/11 Ipratropium/Albuterol Sulfate [Combivent Inhaler] 2 puff IH Q8 11/26/11 Ipratropium/Albuterol Sulfate [Duoneb 2.5-0.5 Mg/3 Ml Soln] 3 ml IH Q4HP PRN 11/26/11 Montelukast Sodium [Singulair 10 mg Tablet] 10 mg PO HSP 11/26/11 Clonazepam [Klonopin] 1 mg PO TID PRN 12/21/11 Lisinopril [Prinivil 20 mg Tablet] 20 mg PO ASDIR PRN 12/21/11 Doxycycline Calcium [Vibramycin] 100 mg PO DAILY 12/26/11 Fluconazole [Diflucan 100 Mg Tablet] 100 mg PO DAILY 12/26/11 Ondansetron [Zofran Odt 4 mg Tablet] 1 - 2 tab PO Q4H PRN #15 tab.rapdis 03/28/13 Promethazine HCl [Phenergan 25 mg Tablet] 1 - 2 tab PO Q6H PRN #20 tablet 03/28/13 Azithromycin 250 mg PO DAILY #4 tablet 05/28/14 Fluconazole [Diflucan 100 Mg Tablet] 100 mg PO DAILY #0 tablet 05/28/14 Prednisone [Deltasone 20 mg Tablet] 3 tab PO DAILY 5 Days tablet 05/28/14 Azithromycin [Zithromax 250 mg Tablet] 250 mg PO ASDIR PRN #6 tablet 03/01/16 Fluconazole [Diflucan] 200 mg PO PRN PRN #1 tablet 03/01/16 Prednisone [Deltasone 10 mg Tablet] 10 mg PO ASDIR PRN #21 tablet 03/01/16 Azithromycin [Zithromax 250 mg Tablet] 250 mg PO ASDIR PRN #6 tablet 07/06/16 Benzonatate [Tessalon Perles 100 mg Capsule] 100 mg PO Q8HP PRN #40 capsule 07/06/16 Oseltamivir Phosphate [Tamiflu 75 mg Capsule] 75 mg PO DAILY #10 capsule 08/19/17 Sucralfate [Carafate 1 gm Tablet] 1 gm PO ACHS #120 tablet 08/19/17 Allergies/Adverse Reactions: latex Allergy (Severe, Verified 05/28/19 15:18) vomiting. itching codeine Adverse Reaction (Severe, Verified 05/28/19 15:18) vomiting, itching Peanuts Allergy (Severe, Uncoded 05/28/19 15:18) Throat swelling NICKEL Allergy (Mild, Uncoded 05/28/19 15:18) rash Review of Systems Constitutional: PRESENT: as per HPI, anorexia, fatigue Eyes: ABSENT: visual disturbances Ears: ABSENT: hearing changes Cardiovascular: PRESENT: dyspnea on exertion. ABSENT: chest pain, edema, orthropnea, palpitations Respiratory: PRESENT: as per HPI, dyspnea. ABSENT: hemoptysis Gastrointestinal: ABSENT: abdominal pain, constipation, diarrhea, hematemesis, hematochezia, nausea, vomiting Genitourinary: ABSENT: dysuria, hematuria Musculoskeletal: ABSENT: joint swelling Integumentary: ABSENT: rash, wounds Neurological: ABSENT: abnormal gait, abnormal speech, confusion, dizziness, focal weakness, syncope Psychiatric: ABSENT: anxiety, depression, homidical ideation, suicidal ideation Endocrine: ABSENT: cold intolerance, heat intolerance, polydipsia, polyuria Hematologic/Lymphatic: ABSENT: easy bleeding, easy bruising Physical Exam Vital Signs: Temp Pulse Resp BP Pulse Ox 97.3 F 80 31 H 159/85 H 97 05/28/19 14:49 05/29/19 04:15 05/29/19 03:20 05/29/19 03:20 05/29/19 03:40 Intake & Output 05/27/19 05/28/19 05/29/19 11:59 11:59 11:59 Weight 62.064 kg General appearance: PRESENT: mild distress, thin, well-developed, well-nourished Head exam: PRESENT: atraumatic, normocephalic Eye exam: PRESENT: conjunctiva pink, EOMI, PERRLA. ABSENT: scleral icterus Ear exam: PRESENT: normal external ear exam Mouth exam: PRESENT: moist, tongue midline Neck exam: ABSENT: carotid bruit, JVD, lymphadenopathy, thyromegaly Respiratory exam: PRESENT: clear to auscultation caro, prolonged expiratory phas, tachypnea, wheezes - Upper airway wheezing clears with forced expiration on auscultation. ABSENT: accessory muscle use, crackles, rales, retraction, rhonchi Cardiovascular exam: PRESENT: RRR, tachycardia. ABSENT: diastolic murmur, rubs, systolic murmur Pulses: PRESENT: normal dorsalis pedis pul Vascular exam: PRESENT: normal capillary refill GI/Abdominal exam: PRESENT: normal bowel sounds, soft. ABSENT: distended, guarding, mass, organolmegaly, rebound, tenderness Rectal exam: PRESENT: deferred Extremities exam: PRESENT: full ROM. ABSENT: calf tenderness, clubbing, pedal edema Neurological exam: PRESENT: alert, awake, oriented to person, oriented to place, oriented to time, oriented to situation, CN II-XII grossly intact. ABSENT: motor sensory deficit Psychiatric exam: PRESENT: appropriate affect, normal mood. ABSENT: homicidal ideation, suicidal ideation Skin exam: PRESENT: dry, intact, warm. ABSENT: cyanosis, rash Results Laboratory Results: 05/28/19 15:40 05/28/19 15:40 05/28/19 05/28/19 05/28/19 15:40 15:40 15:40 WBC 7.3 RBC 4.68 Hgb 13.8 Hct 41.8 MCV 89 MCH 29.6 MCHC 33.1 RDW 13.6 Plt Count 288 Seg Neutrophils % 61.7 Carbonic Acid HCO3/H2CO3 Ratio ABG pH ABG pCO2 ABG pO2 ABG HCO3 ABG O2 Saturation ABG Base Excess FiO2 Sodium 145.5 H Potassium 3.9 Chloride 108 H Carbon Dioxide 29 Anion Gap 9 BUN 14 Creatinine 0.89 Est GFR ( Amer) > 60 Glucose 89 Calcium 9.5 Total Bilirubin 0.5 AST 39 H Alkaline Phosphatase 68 Total Protein 7.0 Albumin 4.3 TSH 0.03 L 05/28/19 21:32 WBC RBC Hgb Hct MCV MCH MCHC RDW Plt Count Seg Neutrophils % Carbonic Acid 1.20 HCO3/H2CO3 Ratio 20:1 ABG pH 7.41 ABG pCO2 39.8 ABG pO2 80.4 ABG HCO3 24.9 H ABG O2 Saturation 96.0 ABG Base Excess 0.4 FiO2 ROOM AIR Sodium Potassium Chloride Carbon Dioxide Anion Gap BUN Creatinine Est GFR ( Amer) Glucose Calcium Total Bilirubin AST Alkaline Phosphatase Total Protein Albumin TSH 05/28/19 15:40 Troponin I < 0.012 NT-Pro-B Natriuret Pep 606 H Impressions: Chest X-Ray 05/28/19 15:18 IMPRESSION: Chronic lung changes with no acute cardiopulmonary findings. Chest/Abdomen CTA 05/28/19 20:28 IMPRESSION: No central pulmonary embolism. Assessment and Plan - Diagnosis (1) Acute dyspnea Is this a current diagnosis for this admission?: Yes Plan: Multifactorial secondary to underlying COPD with hyperthyroid induced high- output CHF and anxiety (2) Elevated brain natriuretic peptide (BNP) level Is this a current diagnosis for this admission?: Yes Plan: Most likely secondary to hypothyroid state and high output. Lopressor ordered, hold Synthroid, education, follow-up free T4 and 2D echo (3) History of COPD Is this a current diagnosis for this admission?: Yes Plan: Albuterol, Atrovent, incentive spirometry (4) Hyperthyroidism Is this a current diagnosis for this admission?: Yes Plan: Hold Synthroid, education, Lopressor (5) CHF (congestive heart failure) Is this a current diagnosis for this admission?: Yes Plan: Secondary to iatrogenic hyperthyroidism, follow-up 2D echo, discontinue Synthroid, Lopressor ordered - Time Time Spent with patient: 25-34 minutes - Inpatient Certification Medical Necessity: Need Close Monitoring Due to Risk of Patient Decompensation
[2019-05-29] MEDS: METOPROLOL TARTRATE 25 MG TABLET PO SCH ×2 (06:00→17:46)
[2019-05-29 06:47] LABS: ARTERIAL BLOOD BASE EXCESS 0.3 mmol/L; ARTERIAL BLOOD FIO2 ROOM AIR; ARTERIAL BLOOD H2CO3 1.25 mmol/L (1.05-1.35); ARTERIAL BLOOD HCO3 25.2 mmol/L (20-24); ARTERIAL BLOOD PCO2 41.6 mmHg (35-45); ARTERIAL BLOOD PO2 81.6 mmHg (80-100); ARTERIAL BLOOD TOTAL CO2 26.5 mmol/L (21-25)
[2019-05-29 07:22] LABS: FREE T3 3.88 pg/mL (2.77-5.27); FREE T4 (FREE THYROXINE) 1.48 ng/dL (0.78-2.19)
[2019-05-29] MEDS: IPRATROPIUM/ALBUTEROL 0.5-2.5 MG/3 ML AMPUL NEB SCH ×3 (08:39→23:39)
[2019-05-29 09:56] LABS: URINE AMPHETAMINES SCREEN NEGATIVE; URINE BARBITURATES SCREEN NEGATIVE; URINE BENZODIAZEPINES SCREEN NEGATIVE; URINE COCAINE SCREEN NEGATIVE; URINE MARIJUANA (THC) SCREEN NEGATIVE; URINE METHADONE SCREEN NEGATIVE; URINE PHENCYCLIDINE SCREEN NEGATIVE
[2019-05-29] MEDS: DOCUSATE SODIUM 100 MG CAPSULE PO SCH ×2 (10:39→17:09)
[2019-05-29] MEDS ORDERED: SUMATRIPTAN SUCCINATE 25 MG TABLET PO PRN (16:52)
--- NOTE | 2019-05-29 18:17 | Progress Note ---
Provider Note Provider Note: The patient is a 73-year-old female with a past medical history of COPD on home O2, GERD, hypothyroidism, and anxiety who was admitted early this morning by the signal tester for Acute dyspnea, elevated proBNP, history of COPD, hypothyroidism, and CHF. Overnight events, vital signs, laboratory results, imaging findings, and orders reviewed. Agree with plan of care as set forth by the previous provider. Additionally, the patient's home medications have been reconciled and and resumed as appropriate. Echocardiogram remains pending.
[2019-05-29] MEDS: TRAZODONE HCL 50 MG TABLET PO SCH (21:51)
[2019-05-29] MEDS: GABAPENTIN 300 MG CAPSULE PO SCH (21:51)
[2019-05-29] MEDS: CYCLOBENZAPRINE HCL 10 MG TABLET PO PRN (21:51)
[2019-05-30 04:59] LABS: ABSOLUTE EOSINOPHILS # (AUTO) 0.2 10^3/uL (0.0-0.6); ABSOLUTE LYMPHOCYTES (AUTO) 2.4 10^3/uL (0.5-4.7); ABSOLUTE MONOCYTES (AUTO) 0.6 10^3/uL (0.1-1.4); BASOPHILS % (AUTO) 0.8 % (0-2); EOSINOPHILS % (AUTO) 3.1 % (0-6); HEMATOCRIT 35.8 % (36.0-47.0); LYMPHOCYTES % (AUTO) 46.7 % (13-45); MEAN CORPUSCULAR HEMOGLOBIN 30.1 pg (27.0-33.4); MEAN CORPUSCULAR HGB CONC 33.4 g/dL (32.0-36.0); MEAN CORPUSCULAR VOLUME 90 fl (80-97); MONOCYTES % (AUTO) 11.4 % (3-13); PLATELET COUNT 204 10^3/uL (150-450); RED BLOOD COUNT 3.98 10^6/uL (3.72-5.28); RED CELL DISTRIBUTION WIDTH 13.5 % (11.5-14.0); TOTAL CELLS COUNTED % (AUTO) 100 %; WHITE BLOOD COUNT 5.2 10^3/uL (4.0-10.5)
[2019-05-30 05:22] LABS: ANION GAP 5 (5-19); BLOOD UREA NITROGEN 12 mg/dL (7-20); CALCIUM 8.5 mg/dL (8.4-10.2); CARBON DIOXIDE 30 mmol/L (22-30); CHLORIDE 107 mmol/L (98-107); GLUCOSE 129 mg/dL (75-110); POTASSIUM 3.4 mmol/L (3.6-5.0)
[2019-05-30] MEDS: METOPROLOL TARTRATE 25 MG TABLET PO SCH ×2 (06:01→18:00)
[2019-05-30] MEDS: GABAPENTIN 300 MG CAPSULE PO SCH ×3 (06:01→22:28)
[2019-05-30] MEDS: HEPARIN SOD (PORCINE) 5,000 UNIT/ML 1 ML VIAL SUBCUT SCH ×3 (06:01→22:25)
[2019-05-30 06:04] LABS: NT PRO BNP 520 pg/mL (<125)
[2019-05-30 06:07] LABS: TROPONIN I < 0.012 ng/mL
[2019-05-30] MEDS: IPRATROPIUM/ALBUTEROL 0.5-2.5 MG/3 ML AMPUL NEB SCH ×3 (07:50→23:51)
[2019-05-30] MEDS ORDERED: POTASSIUM CHLORIDE 10 MEQ TABLET.ER PO ONE (09:00)
[2019-05-30] MEDS ORDERED: (PENDING PHARMACY ID) (Lisinopril [Prinivil 20 Mg Tablet] 20 MG) PO SCH (10:00)
[2019-05-30] MEDS: FLUTICASONE/UMECLIDIN/VILANTER 100-62.5-25 MCG/DOSE IH SCH (11:17)
[2019-05-30] MEDS: LISINOPRIL 10 MG TABLET PO SCH (11:18)
[2019-05-30] MEDS: SODIUM CHLORIDE NASAL SPRAY 44 ML NASL SCH ×3 (11:18→22:28)
[2019-05-30] MEDS: FLUTICASONE NASAL SPRAY 50 MCG/SPRY 120 SPRAY/16 GM NAREB SCH (11:18)
[2019-05-30] MEDS: CHOLECALCIFEROL (D3) 1,000 UNIT (25 MCG) TABLET PO SCH (11:18)
[2019-05-30] MEDS: DOCUSATE SODIUM 100 MG CAPSULE PO SCH ×2 (11:20→17:57)
[2019-05-30] MEDS ORDERED: DIAZEPAM 5 MG TABLET PO PRN (13:39)
[2019-05-30] MEDS ORDERED: CYANOCOBALAMIN (VITAMIN B-12) INJ 1000 MCG/1 ML VIAL IM ONE (14:00)
--- NOTE | 2019-05-30 17:47 | PDOC PROGRESS REPORT ---
Subjective Progress Note for:: 05/30/19 Subjective:: The patient is a 73-year-old female with a past medical history of COPD on home O2, GERD, hypothyroidism, and anxiety who was admitted early this morning by the clinical appeals specialist for Acute dyspnea, elevated proBNP, history of COPD, hypothyroidism, and CHF. The patient was seen on morning rounds. She was found sitting up to the edge of the bed, comfortably, on room air eating her breakfast. She reports fingertip numbness noted upon waking this morning. She also reports an odd sensation to her mouth; described as a tingling or "my tongue just does not fit," although she does admit that she is able to swallow and speak clearly and easily. She also reports feeling, "drunk." (Patient did receive a new sleep aid and Flexeril last night). Otherwise, she reports that she is feeling better. She denies fever, chills, chest pain, palpitations, dyspnea, orthopnea, cough, abdominal pain, nausea vomiting and diarrhea. She reports good appetite this morning. No other questions or concerns. No concerns per nursing. Reason For Visit: ANXIETY, SOB COPD Physical Exam Vital Signs: Temp Pulse Resp BP Pulse Ox 98.0 F 78 15 126/79 H 94 05/30/19 16:00 05/30/19 16:00 05/30/19 16:00 05/30/19 16:00 05/30/19 16:00 Intake & Output 05/29/19 05/30/19 05/31/19 06:59 06:59 06:59 Intake Total 372 480 Output Total 300 Balance 72 480 Weight 61.4 kg 61.2 kg General appearance: PRESENT: no acute distress, cooperative, well-developed, well-nourished Head exam: PRESENT: atraumatic, normocephalic Eye exam: PRESENT: conjunctiva pink, EOMI, PERRLA. ABSENT: scleral icterus Ear exam: PRESENT: normal external ear exam Mouth exam: PRESENT: moist, tongue midline Respiratory exam: PRESENT: clear to auscultation caro, symmetrical, unlabored. ABSENT: rales, rhonchi, wheezes Cardiovascular exam: PRESENT: RRR, +S1, +S2. ABSENT: diastolic murmur, rubs, systolic murmur Vascular exam: PRESENT: normal capillary refill Rectal exam: PRESENT: deferred Extremities exam: PRESENT: full ROM. ABSENT: calf tenderness, clubbing, pedal edema Musculoskeletal exam: PRESENT: ambulatory Neurological exam: PRESENT: alert, awake, oriented to person, oriented to place, oriented to time, oriented to situation, CN II-XII grossly intact. ABSENT: motor sensory deficit Psychiatric exam: PRESENT: anxious, appropriate affect, normal mood. ABSENT: homicidal ideation, suicidal ideation Skin exam: PRESENT: dry, intact, warm. ABSENT: cyanosis, rash Results Laboratory Results: 05/30/19 04:42 05/30/19 04:42 05/30/19 05/30/19 05/30/19 04:42 04:42 04:42 WBC 5.2 RBC 3.98 Hgb 12.0 Hct 35.8 L MCV 90 MCH 30.1 MCHC 33.4 RDW 13.5 Plt Count 204 Seg Neutrophils % 38.0 L Sodium 141.7 Potassium 3.4 L Chloride 107 Carbon Dioxide 30 Anion Gap 5 BUN 12 Creatinine 0.71 Est GFR ( Amer) > 60 Glucose 129 H Calcium 8.5 Vitamin B12 229.0 L 05/28/19 05/30/19 15:40 04:42 Troponin I < 0.012 < 0.012 NT-Pro-B Natriuret Pep 606 H 520 H Impressions: Chest X-Ray 05/28/19 15:18 IMPRESSION: Chronic lung changes with no acute cardiopulmonary findings. Chest/Abdomen CTA 05/28/19 20:28 IMPRESSION: No central pulmonary embolism. Assessment and Plan - Diagnosis (1) Acute dyspnea Is this a current diagnosis for this admission?: Yes (2) CHF (congestive heart failure) Is this a current diagnosis for this admission?: Yes Plan: Resolved. Secondary to iatrogenic hyperthyroidism Echocardiogram pending. Continue metoprolol 12.5 mg twice daily. We will resume Synthroid tomorrow at half dose (3) Elevated brain natriuretic peptide (BNP) level Is this a current diagnosis for this admission?: Yes Plan: Trending down; symptoms have resolved. Evaluation management as above. (4) Hyperthyroidism Is this a current diagnosis for this admission?: Yes Plan: Resume lower dose levothyroxine; 50 mcg daily. Continue metoprolol. (5) History of COPD Is this a current diagnosis for this admission?: Yes Plan: Supplemental oxygen as needed. Scheduled and as needed nebulizer treatments. Flonase. Home dose Trelegy (6) B12 deficiency Is this a current diagnosis for this admission?: Yes Plan: Patient complained of oral tingling and fingertip neuropathy. She was noted to have pharyngeal erythema with slight postnasal drip. B12 229 B12 1000 mcg IM x1 - Time Time Spent with patient: 25-34 minutes Medications reviewed and adjusted accordingly: Yes Anticipated discharge: Home Within: within 24 hours
[2019-05-30] MEDS: TRAZODONE HCL 50 MG TABLET PO SCH (22:28)
[2019-05-31] MEDS: CYCLOBENZAPRINE HCL 10 MG TABLET PO PRN (03:35)
[2019-05-31] MEDS: METOPROLOL TARTRATE 25 MG TABLET PO SCH (05:44)
[2019-05-31] MEDS: GABAPENTIN 300 MG CAPSULE PO SCH (05:45)
[2019-05-31] MEDS: HEPARIN SOD (PORCINE) 5,000 UNIT/ML 1 ML VIAL SUBCUT SCH (05:46)
[2019-05-31] MEDS ORDERED: LEVOTHYROXINE SODIUM 0.05 MG TABLET PO SCH (06:00)
[2019-05-31 06:14] LABS: ANION GAP 7 (5-19); BLOOD UREA NITROGEN 13 mg/dL (7-20); CALCIUM 8.8 mg/dL (8.4-10.2); CARBON DIOXIDE 31 mmol/L (22-30); CHLORIDE 105 mmol/L (98-107); GLUCOSE 128 mg/dL (75-110); POTASSIUM 3.8 mmol/L (3.6-5.0)
[2019-05-31] MEDS: IPRATROPIUM/ALBUTEROL 0.5-2.5 MG/3 ML AMPUL NEB SCH (08:13)
[2019-05-31] MEDS: CHOLECALCIFEROL (D3) 1,000 UNIT (25 MCG) TABLET PO SCH (10:18)
[2019-05-31] MEDS: DOCUSATE SODIUM 100 MG CAPSULE PO SCH (10:18)
[2019-05-31] MEDS: LISINOPRIL 10 MG TABLET PO SCH (10:19)
[2019-05-31] MEDS: FLUTICASONE NASAL SPRAY 50 MCG/SPRY 120 SPRAY/16 GM NAREB SCH (10:19)
[2019-05-31] MEDS: FLUTICASONE/UMECLIDIN/VILANTER 100-62.5-25 MCG/DOSE IH SCH (10:19)
[2019-05-31] MEDS: SODIUM CHLORIDE NASAL SPRAY 44 ML NASL SCH (10:19)
[2019-05-31 12:49] VITALS: BP 133/92
--- NOTE | 2019-05-31 13:23 | XCELERA REPORT ---
[address] [address] Transthoracic Echocardiogram Report Name: HERMAN DILLON Age: 73 yrs Gender: Female : 1945 Patient Status: [facility]: 05/29/2019 06:06 PM Height: 61 in Weight: 136 lb BSA: 1.6 m2 Procedure: A two-dimensional transthoracic echocardiogram with color flow and Doppler was performed. Study Quality: Technically suboptimal. The study was technically difficult with many images being suboptimal in quality. Reason For Study: systolic murmur History: systolic murmur. Ordering Physician: CJ EDWARDS Performed By: Shellie Klein Interpretation Summary The left ventricle is normal in size. There is normal left ventricular wall thickness. LV EF is > than 60% Left ventricular systolic function is normal. Doppler measurements suggest impaired left ventricular relaxation, which is associated with grade I/IV or mild diastolic dysfunction The left ventricular wall motion is normal. There is no thrombus. Probably no ASD , VSD , or PFO seen. The right ventricle is not well visualized secondary to technical limitations Right atrium not well visualized secondary to technical limitations The left atrial size is normal. There is no evidence of mitral valve prolapse. There is no vegetation seen on the mitral valve. There is no mitral valve stenosis. There is a trace amount of mitral regurgitation There is no aortic valvular vegetation. There is no aortic valve stenosis There is no LVOT obstruction. No aortic regurgitation is present. There is a trace amount of tricuspid regurgitation Tricuspid regurgitation jet envelope not well defined to measure RV systolic pressure accurately. The pulmonic valve is not well visualized. The inferior vena cava appeared normal and decreased > 50% with respiration (RAP 5-10 mmHg) There is no pericardial effusion. MMode/2D Measurements & Calculations RVDd: 2.1 cm LVIDd: 3.6 cm FS: 30.3 % Ao root diam: 2.6 cm IVSd: 0.81 cm LVIDs: 2.5 cm EDV(Teich): 53.4 ml Ao root area: 5.2 cm2 LVPWd: 0.82 cm ESV(Teich): 22.1 ml LA dimension: 2.1 cm EF(Teich): 58.6 % Doppler Measurements & Calculations MV E max cindy: MV P1/2t max cindy: Ao V2 max: LV V1 max P.0 cm/sec 120.8 cm/sec 162.9 cm/sec 5.6 mmHg MV A max cindy: MV P1/2t: 52.4 msec Ao max PG: LV V1 max: 128.8 cm/sec MVA(P1/2t): 4.2 cm2 10.6 mmHg 118.5 cm/sec MV E/A: 0.90 MV dec slope: 674.6 cm/sec2 MV dec time: 0.24 sec PA V2 max: MV P1/2t-pr_phl: 92.3 cm/sec 52.4 msec PA max P.4 mmHg Left Ventricle The left ventricle is normal in size. There is normal left ventricular wall thickness. LV EF is > than 60%. Left ventricular systolic function is normal. Doppler measurements suggest impaired left ventricular relaxation, which is associated with grade I/IV or mild diastolic dysfunction. The left ventricular wall motion is normal. There is no thrombus. Probably no ASD , VSD , or PFO seen. Right Ventricle The right ventricle is not well visualized secondary to technical limitations. Atria Right atrium not well visualized secondary to technical limitations. The left atrial size is normal. Mitral Valve There is no evidence of mitral valve prolapse. There is no vegetation seen on the mitral valve. There is no mitral valve stenosis. There is a trace amount of mitral regurgitation. Aortic Valve There is no aortic valvular vegetation. There is no aortic valve stenosis. There is no LVOT obstruction. No aortic regurgitation is present. Tricuspid Valve There is no tricuspid stenosis. There is a trace amount of tricuspid regurgitation. Tricuspid regurgitation jet envelope not well defined to measure RV systolic pressure accurately. Pulmonic Valve The pulmonic valve is not well visualized. Great Vessels The aortic root is normal size. The inferior vena cava appeared normal and decreased > 50% with respiration (RAP 5-10 mmHg). Effusions There is no pericardial effusion. : CJ EDWARDS Lakshmi
--- NOTE | 2019-06-02 22:00 | PDOC DISCHARGE SUMMARY ---
Impression - Admit/DC Date/PCP Admission Date/Primary Care Provider: 05/29/19 02:13 LUCINA BARBA MD Discharge Date: 05/31/19 - Discharge Diagnosis (1) Acute dyspnea Is this a current diagnosis for this admission?: Yes (2) CHF (congestive heart failure) Is this a current diagnosis for this admission?: Yes (3) Elevated brain natriuretic peptide (BNP) level Is this a current diagnosis for this admission?: Yes (4) Hyperthyroidism Is this a current diagnosis for this admission?: Yes (5) History of COPD Is this a current diagnosis for this admission?: Yes (6) B12 deficiency Is this a current diagnosis for this admission?: Yes - Additional Information Resuscitation Status: Full Code Discharge Diet: Cardiac Discharge Activity: Activity As Tolerated, Balance Activity w/Rest, Weigh Daily Referrals: LUCINA BARBA MD [Primary Care Provider] - 06/17/19 2:00 pm (06/02 at 1419 spoke to/notified patient of appt. ) Prescriptions: Metoprolol Tartrate [Lopressor 25 mg Tablet] 12.5 mg PO Q12A #60 tablet Levothyroxine Sodium [Synthroid 0.05 mg Tablet] 0.05 mg PO Q6AM #30 tablet Home Medications: Fluticasone Propionate [Flonase Nasal [place] 50 Mcg/[place] 16 gm] 1 spray NAREB DAILY 11/26/11 Lisinopril [Prinivil 20 mg Tablet] 20 mg PO DAILY 12/21/11 Albuterol Sulfate [Albuterol Sulfate Hfa] 2 puff IH Q6HP PRN 05/29/19 Cholecalciferol (Vitamin D3) [Vitamin D3 5000 unit Capsule] 5,000 unit PO DAILY 05/29/19 Fluocinonide [Lidex-E 0.05% Cream 15 gm] 1 applic TOP DAILYP PRN 05/29/19 Fluticasone/Umeclidin/Vilanter [Trelegy 100-62.5-25 Mcg Ellipta 14 Dose/Dpi] 1 each IH DAILY 05/29/19 Gabapentin [Neurontin 300 mg Capsule] 300 mg PO Q8 05/29/19 Ibuprofen [Motrin 800 mg Tablet] 800 mg PO Q8HP PRN 05/29/19 Sumatriptan Succinate [Imitrex 25 mg Tablet] 25 mg PO ASDIR PRN 05/29/19 Acetaminophen [Tylenol 325 mg Tablet] 650 mg PO Q4HP PRN tablet 05/31/19 Diazepam [Valium 5 mg Tablet] 2.5 mg PO DAILYP PRN #0 05/31/19 Docusate Sodium [Colace 100 mg Capsule] 100 mg PO BID capsule 05/31/19 Levothyroxine Sodium [Synthroid 0.05 mg Tablet] 0.05 mg PO Q6AM #30 tablet 05/31/19 Metoprolol Tartrate [Lopressor 25 mg Tablet] 12.5 mg PO Q12A #60 tablet 05/31/19 History of Present Illiness History of Present Illness: Per Dr. Garcia: HERMAN DILLON is a 73 year old female with a past medical history of COPD on home O2, GERD, hypothyroidism and anxiety. Presents after approximately 2 weeks of increasing shortness of breath associated with tremor and anxiety. In the emergency room she is found to have tachypnea during ambulation and mildly elevated BNP. She receives breathing treatments and referred to the hospitalist for evaluation. Patient has a nervous affect, flight of ideas with perseveration on suspected breast augmentation complications. Her son at bedside relates this is going on for a couple of weeks. Patient has had treatment of her shortness of breath with steroids without significant improvement. She is otherwise had Synthyroid dose increase from 50 mcg to 100 mcg 1 month ago. Hospital Course Hospital Course: The patient was admitted to the medical floor on continuous cardiac telemetry. Supplemental oxygen as needed. Her acute dyspnea is rapidly resolved and she was found to be maintaining oxygen saturations while ambulating on room air. Her mild CHF exacerbation resolved following brief hold of her Synthroid and start of metoprolol 12.5 mg twice daily. An echocardiogram was obtained; LVEF greater than 60% with mild diastolic dysfunction noted. Her echo was otherwise reassuring. Patient's proBNP has trended down; and troponins were negative x2. The patient reports that her chest discomfort and dyspnea have entirely abated. At that time, her Synthroid was resumed at 50 mcg (the patient's previous home dose; reports that she was recently instructed to double). She did complain of perioral paresthesia and and fingertip paresthesias. Her vitamin B12 level was found to be low at 229. She was provided vitamin B12 1000 mcg IM injection prior to discharge. Recommend routine B12 monitoring by her PCP. The patient was discharged home in stable condition, asymptomatic, and maintaini ng oxygen saturations while ambulatory on room air. She is advised to follow-up with her primary care provider within 1 week. She is encouraged to follow-up with story teller as needed. She is instructed to take her medications as prescribed. Drink plenty of water, eat a heart healthy diet, and change positions slowly. She is advised to return to the emergency department as needed for concerning s ymptoms. Physical Exam Vital Signs: Temp Pulse Resp BP Pulse Ox 97.8 F 75 12 133/92 H 98 05/31/19 12:46 05/31/19 12:46 05/31/19 12:46 05/31/19 12:46 05/31/19 12:46 General appearance: PRESENT: no acute distress, well-developed, well-nourished Head exam: PRESENT: atraumatic, normocephalic Eye exam: PRESENT: conjunctiva pink, EOMI, PERRLA. ABSENT: scleral icterus Ear exam: PRESENT: normal external ear exam Mouth exam: PRESENT: moist, tongue midline Neck exam: ABSENT: carotid bruit, JVD, lymphadenopathy, thyromegaly Respiratory exam: PRESENT: clear to auscultation caro. ABSENT: rales, rhonchi, wheezes Cardiovascular exam: PRESENT: RRR. ABSENT: diastolic murmur, rubs, systolic murmur Pulses: PRESENT: normal dorsalis pedis pul Vascular exam: PRESENT: normal capillary refill GI/Abdominal exam: PRESENT: normal bowel sounds, soft. ABSENT: distended, guarding, mass, organolmegaly, rebound, tenderness Rectal exam: PRESENT: deferred Extremities exam: PRESENT: full ROM. ABSENT: calf tenderness, clubbing, pedal edema Musculoskeletal exam: PRESENT: ambulatory Neurological exam: PRESENT: alert, awake, oriented to person, oriented to place, oriented to time, oriented to situation, CN II-XII grossly intact. ABSENT: motor sensory deficit Psychiatric exam: PRESENT: appropriate affect, normal mood. ABSENT: homicidal ideation, suicidal ideation Skin exam: PRESENT: dry, intact, warm. ABSENT: cyanosis, rash Results Laboratory Results: WBC 5.2 10^3/uL (4.0-10.5) 05/30/19 04:42 RBC 3.98 10^6/uL (3.72-5.28) 05/30/19 04:42 Hgb 12.0 g/dL (12.0-15.5) 05/30/19 04:42 Hct 35.8 % (36.0-47.0) L 05/30/19 04:42 MCV 90 fl (80-97) 05/30/19 04:42 MCH 30.1 pg (27.0-33.4) 05/30/19 04:42 MCHC 33.4 g/dL (32.0-36.0) 05/30/19 04:42 RDW 13.5 % (11.5-14.0) 05/30/19 04:42 Plt Count 204 10^3/uL (150-450) 05/30/19 04:42 Lymph % (Auto) 46.7 % (13-45) H 05/30/19 04:42 Warren % (Auto) 11.4 % (3-13) 05/30/19 04:42 Eos % (Auto) 3.1 % (0-6) 05/30/19 04:42 Baso % (Auto) 0.8 % (0-2) 05/30/19 04:42 Absolute Neuts (auto) 2.0 10^3/uL (1.7-8.2) 05/30/19 04:42 Absolute Lymphs (auto) 2.4 10^3/uL (0.5-4.7) 05/30/19 04:42 Absolute Monos (auto) 0.6 10^3/uL (0.1-1.4) 05/30/19 04:42 Absolute Eos (auto) 0.2 10^3/uL (0.0-0.6) 05/30/19 04:42 Absolute Basos (auto) 0.0 10^3/uL (0.0-0.2) 05/30/19 04:42 Seg Neutrophils % 38.0 % (42-78) L 05/30/19 04:42 Carbonic Acid 1.25 mmol/L (1.05-1.35) 05/29/19 00:52 HCO3/H2CO3 Ratio 20:1 05/29/19 00:52 ABG pH 7.40 (7.35-7.45) 05/29/19 00:52 ABG pCO2 41.6 mmHg (35-45) 05/29/19 00:52 ABG pO2 81.6 mmHg (80-100) 05/29/19 00:52 ABG HCO3 25.2 mmol/L (20-24) H 05/29/19 00:52 ABG Total CO2 26.5 mmol/L (21-25) H 05/29/19 00:52 ABG O2 Saturation 96.0 % (94-98) 05/29/19 00:52 ABG Base Excess 0.3 mmol/L 05/29/19 00:52 FiO2 ROOM AIR 05/29/19 00:52 Sodium 142.5 mmol/L (137-145) 05/31/19 05:30 Potassium 3.8 mmol/L (3.6-5.0) 05/31/19 05:30 Chloride 105 mmol/L (98-107) 05/31/19 05:30 Carbon Dioxide 31 mmol/L (22-30) H 05/31/19 05:30 Anion Gap 7 (5-19) 05/31/19 05:30 BUN 13 mg/dL (7-20) 05/31/19 05:30 Creatinine 0.78 mg/dL (0.52-1.25) 05/31/19 05:30 Est GFR ( Amer) > 60 (>60) 05/31/19 05:30 Est GFR (MDRD) Non-Af > 60 (>60) 05/31/19 05:30 Glucose 128 mg/dL (75-110) H 05/31/19 05:30 Calcium 8.8 mg/dL (8.4-10.2) 05/31/19 05:30 Total Bilirubin 0.5 mg/dL (0.2-1.3) 05/28/19 15:40 Direct Bilirubin 0.1 mg/dL (0.0-0.4) 05/28/19 15:40 Neonat Total Bilirubin Not Reportable 05/28/19 15:40 Neonat Direct Bilirubin Not Reportable 05/28/19 15:40 Neonat Indirect Bili Not Reportable 05/28/19 15:40 AST 39 U/L (14-36) H 05/28/19 15:40 ALT 29 U/L (<35) 05/28/19 15:40 Alkaline Phosphatase 68 U/L (38-126) 05/28/19 15:40 Troponin I < 0.012 ng/mL 05/30/19 04:42 NT-Pro-B Natriuret Pep 520 pg/mL (<125) H 05/30/19 04:42 Total Protein 7.0 g/dL (6.3-8.2) 05/28/19 15:40 Albumin 4.3 g/dL (3.5-5.0) 05/28/19 15:40 Vitamin B12 229.0 pg/mL (239-931) L 05/30/19 04:42 TSH 0.03 uIU/mL (0.47-4.68) L 05/28/19 15:40 Free T4 1.48 ng/dL (0.78-2.19) 05/29/19 06:09 Free T3 pg/mL 3.88 pg/mL (2.77-5.27) 05/29/19 06:09 Urine Opiates Screen NEGATIVE 05/29/19 09:03 Urine Methadone Screen NEGATIVE 05/29/19 09:03 Ur Barbiturates Screen NEGATIVE 05/29/19 09:03 Ur Phencyclidine Scrn NEGATIVE 05/29/19 09:03 Ur Amphetamines Screen NEGATIVE 05/29/19 09:03 U Benzodiazepines Scrn NEGATIVE 05/29/19 09:03 Urine Cocaine Screen NEGATIVE 05/29/19 09:03 U Marijuana (THC) Screen NEGATIVE 05/29/19 09:03 05/28/19 05/30/19 15:40 04:42 Troponin I < 0.012 < 0.012 NT-Pro-B Natriuret Pep 606 H 520 H Impressions: Chest X-Ray 05/28/19 15:18 IMPRESSION: Chronic lung changes with no acute cardiopulmonary findings. Chest/Abdomen CTA 05/28/19 20:28 IMPRESSION: No central pulmonary embolism. Plan Plan of Treatment: The patient is discharged home in stable condition. She is instructed to follow-up with her primary care provider within 1 week. Recommend PCP begin routine monitoring of B12 level She is instructed to follow-up with the story teller; provided the contact information to Dr. Giang's office. Recommend taking a multivitamin and complex vitamin supplement. Take other medications as prescribed. Drink plenty of water. Change positions slowly. Stop smoking. Return to the emergency department as needed for concerning symptoms. Stroke Is this a Stroke Patient?: No Acute Heart Failure - Is this a Heart Failure Patient?: No
== END 2019-05-31 14:00 | disposition home or self-care (01) ==
LOC: ER 14:36 → EH 05-29 02:13 → 5 05-29 03:50
PROVIDERS: ADMIT Internal Medicine; ATTEND Internal Medicine
DX: R06.09 Other forms of dyspnea (principal); I50.31 Acute diastolic (congestive) heart failure; R79.89 Other specified abnormal findings of blood chemistry; E05.80 Other thyrotoxicosis without thyrotoxic crisis or storm; J44.9 Chronic obstructive pulmonary disease, unspecified; E53.8 Deficiency of other specified B group vitamins; F41.1 Generalized anxiety disorder; R45.0 Nervousness; R63.0 Anorexia; R07.89 Other chest pain; E78.5 Hyperlipidemia, unspecified; Z91.81 History of falling; Z79.899 Other long term (current) drug therapy; Z99.81 Dependence on supplemental oxygen; Z87.891 Personal history of nicotine dependence; Z82.49 Family history of ischemic heart disease and other diseases of the circulatory system; Z79.82 Long term (current) use of aspirin; Z98.82 Breast implant status
CPT/HCPCS: 93005; 94640 ×3; 99285; 96374; 36415 ×4; 84439; 82607; 82803 ×2; 84443; 85025 ×2; 80048 ×2; 80053; 84484 ×2; 80307; 84481; 83880 ×2; 93306; 71046; 71275; 93010; 36600; G0378 ×4; A9270 ×24; J1644 ×2; J3420; J2405; J3490; J7620

== ENCOUNTER 2019-11-03 15:50 | Emergency (ER) | payer MEDICARE, MEDICAID ==
--- NOTE | 2019-11-03 16:14 | ER Document Report ---
ED Medical Screen (RME) - General Chief Complaint: Altered Mental Status Stated Complaint: ALTERED MENTAL STATUS Time Seen by Provider: 11/03/19 16:02 Primary Care Provider: JUSTIN REDDY FNP-C [Primary Care Provider] - Follow up as needed Mode of Arrival: Wheelchair Information source: Patient, Relative Notes: 74-year-old female with history of asthma, high blood pressure high cholesterol presents to the emergency department with complaints of altered mental status confusion. Patient gives history that approximately 3 to 4 weeks ago she was at [facility] when she had a very bad migraine. She reports she has not had migraines in 40 years. (Review of records shows patient had prescription for Imitrex refilled in August) she reports she became nauseated at that time. She reports since that time she has had migraines and difficulty processing things. Her olhgibbi-rv-joa (via phone) reports that she keeps repeating actions such as getting a drink of water forgetting she got the drink and then going back to get a drink of water. [id number] reports patient stayed in bed all day Saturday because she complained her right side was numb and she did not feel good. Also forgot how to open her car door. She is been forgetting how to do her hair. Forwvsca-nh-ynz reports no history of stroke as far she knows of but has history of epilepsy. Questionable history of dementia. Patient is calm. She was confused to date. No obvious neuro deficit. Patient denies headache at this time. I have greeted and performed a rapid initial assessment of this patient. A comprehensive ED assessment and evaluation of the patient, analysis of test results and completion of the medical decision making process will be conducted by additional ED providers. TRAVEL OUTSIDE OF THE [place] IN LAST 30 DAYS: No - Related Data Allergies/Adverse Reactions: latex Allergy (Severe, Verified 05/28/19 15:18) vomiting. itching codeine Adverse Reaction (Severe, Verified 05/28/19 15:18) vomiting, itching Peanuts Allergy (Severe, Uncoded 05/28/19 15:18) Throat swelling NICKEL Allergy (Mild, Uncoded 05/28/19 15:18) rash Past Medical History - General Information source: Patient - Social History Frequency of alcohol use: None Drug Abuse: None - Past Medical History Cardiac Medical History: Reports: Hx Hypercholesterolemia, Hx Hypertension Denies: Hx Atrial Fibrillation, Hx Congestive Heart Failure, Hx Coronary Artery Disease, Hx Heart Attack, Hx Peripheral Vascular Disease, Hx Pulmonary Embolism, Hx Heart Murmur Pulmonary Medical History: Reports: Hx Asthma, Hx Bronchitis, Hx COPD - chronic Denies: Hx Pneumonia, Hx Respiratory Failure, Hx Sleep Apnea, Hx Tuberculosis Endocrine Medical History: Reports: Hx Hypothyroidism. Denies: Hx Graves' Disease Renal/ Medical History: Reports: Hx Kidney Stones. Denies: Hx End Stage Renal Disease, Hx Peritoneal Dialysis Malignancy Medical History: Denies: Hx Lung Cancer GI Medical History: Reports: Hx Gastroesophageal Reflux Disease, Hx Hiatal H ernia. Denies: Hx Crohn's Disease, Hx Irritable Bowel, Hx Liver Failure, Hx Pancreatitis, Hx Ulcer Musculoskeltal Medical History: Reports Hx Fibromyalgia, Denies Hx Muscular Dystrophy, Denies Hx Systemic Lupus Erythematosus Psychiatric Medical History: Reports: Hx Anxiety, Hx Depression Traumatic Medical History: Denies: Hx Fractures Past Surgical History: Reports: Hx Appendectomy, Hx Breast Surgery - breast augmentation x2, Hx Cholecystectomy, Hx Hysterectomy, Hx Orthopedic Surgery - toe surgery R foot, Hx Tonsillectomy, Hx Tubal Ligation. Denies: Hx Bowel Surgery, Hx Colostomy, Hx Coronary Artery Bypass Graft, Hx Gastric Bypass Surgery, Hx Mastectomy, Hx Pacemaker - Immunizations Hx Diphtheria, Pertussis, Tetanus Vaccination: No Physical Exam - Vital signs Vitals: Temp Pulse Resp BP Pulse Ox 97.7 F 96 16 130/88 H 97 11/03/19 15:56 11/03/19 15:56 11/03/19 15:56 11/03/19 15:56 11/03/19 15:56 Course - Vital Signs Vital signs: Temp Pulse Resp BP Pulse Ox 97.7 F 96 16 130/88 H 97 11/03/19 16:03 11/03/19 15:56 11/03/19 15:56 11/03/19 15:56 11/03/19 15:56 Doctor's Discharge - Discharge Referrals: JUSTIN REDDY FNP-C [Primary Care Provider] - Follow up as needed
--- NOTE | 2019-11-03 16:28 | RADIOLOGY REPORT (SQ) ---
EXAM DESCRIPTION: CT HEAD WITHOUT IMAGES COMPLETED DATE/TIME: 11/03/2019 4:18 pm REASON FOR STUDY: ams COMPARISON: MR dated 08/16/2016. TECHNIQUE: Axial images acquired through the brain without intravenous contrast. Images reviewed wi th bone, brain and subdural windows. Additional sagittal and coronal reconstructions were generated. Images stored on PACS. All CT scanners at this facility use dose modulation, iterative reconstruction, and/or weight based d osing when appropriate to reduce radiation dose to as low as reasonably achievable (ALARA). [facility]: Dose Right [facility]: CareDose [facility]: Dose Right [facility]: Teradose 4D [facility]: Ingen.io RADIATION DOSE: CT Rad equipment meets quality standard of care and radiation dose reduction techniq ues were employed. CTDIvol: 53.2 mGy. DLP: 937 mGy-cm.mGy. LIMITATIONS: None. FINDINGS: VENTRICLES: Prominent. CEREBRUM: No masses. No hemorrhage. No midline shift. Areas of low density in the white matter mos t likely due to chronic micro-vascular ischemic change. No evidence for acute infarction. CEREBELLUM: No masses. No hemorrhage. No alteration of density. No evidence for acute infarction. EXTRAAXIAL SPACES: Age-related involutional change. No fluid collections. No masses. ORBITS AND GLOBE: No intra- or extraconal masses. Normal contour of globe without masses. CALVARIUM: No fracture. PARANASAL SINUSES: No fluid or mucosal thickening. SOFT TISSUES: No mass or hematoma. OTHER: No other significant finding. IMPRESSION: CHRONIC CHANGES OF ATROPHY AND MICROVASCULAR ISCHEMIA. NO ACUTE PROCESS. EVIDENCE OF ACUTE STROKE: NO. TECHNICAL DOCUMENTATION: JOB ID: [id number] Quality ID # [id number]: Final reports with documentation of one or more dose reduction techniques (e.g., Au tomated exposure control, adjustment of the mA and/or kV according to patient size, use of iterative reconstruction technique) 2010 [employer]- All Rights Reserved Reading location - IP/workstation name: [email or web address]
--- NOTE | 2019-11-03 16:30 | RADIOLOGY REPORT (SQ) ---
EXAM DESCRIPTION: CHEST SINGLE VIEW IMAGES COMPLETED DATE/TIME: 11/03/2019 4:23 pm REASON FOR STUDY: ams COMPARISON: 05/28/2019. EXAM PARAMETERS: NUMBER OF VIEWS: One view. TECHNIQUE: Single frontal radiographic view of the chest acquired. RADIATION DOSE: NA LIMITATIONS: None. FINDINGS: LUNGS AND PLEURA: No opacities, masses or pneumothorax. No pleural effusion. MEDIASTINUM AND HILAR STRUCTURES: No masses. Contour normal. HEART AND VASCULAR STRUCTURES: Heart normal in size. Normal vasculature. BONES: No acute findings. HARDWARE: None in the chest. OTHER: No other significant finding. IMPRESSION: NO ACUTE RADIOGRAPHIC FINDING IN THE CHEST. TECHNICAL DOCUMENTATION: JOB ID: [id number] 2010 [employer]- All Rights Reserved Reading location - IP/workstation name: [email or web address]
--- NOTE | 2019-11-03 16:45 | ER Document Report ---
ED General - General Chief Complaint: Altered Mental Status Stated Complaint: ALTERED MENTAL STATUS Time Seen by Provider: 11/03/19 16:02 Primary Care Provider: JUSTIN REDDY FNP-C [Primary Care Provider] - Follow up in 3-5 days Mode of Arrival: Wheelchair Information source: Parent Notes: 74-year-old female presents to ED for complaint of a headache she states she has been forgetful lately getting how to do things becoming confused. She states she has not had a headache in years and she has had a headache for the past several months with nausea. She states she has been having difficulty processing things since she started with these migraines. She states sometimes she cannot remember how to fix her hair properly hurt. Her bczicwrj-bi-lkr reports that she has been staying in bed all day on Saturday because of right- sided numbness and weakness. She states sometimes when she goes to bed she wakes up in her hands or feet are numb. Her [id number]-[id number] also reports that she has had trouble opening her car door at times and forgetting when she goes gets water she says she is getting to get water again. The [id number] also reports that they think she might be having early dementia. Patient is alert and oriented at this time. She does answer all questions appropriately. TRAVEL OUTSIDE OF THE [place] IN LAST 30 DAYS: No - HPI Onset: Other - She states she has had a headache for several months and the forgetfulness and forgetting how to do things is becoming more aware Onset/Duration: Gradual Quality of pain: Achy Severity: Mild Pain Level: 1 Associated symptoms: Headache Exacerbated by: Denies Relieved by: Denies Similar symptoms previously: Yes Recently seen / treated by doctor: No - Related Data Allergies/Adverse Reactions: latex Allergy (Severe, Verified 05/28/19 15:18) vomiting. itching codeine Adverse Reaction (Severe, Verified 05/28/19 15:18) vomiting, itching Peanuts Allergy (Severe, Uncoded 05/28/19 15:18) Throat swelling NICKEL Allergy (Mild, Uncoded 05/28/19 15:18) rash Past Medical History - General Information source: Patient - Social History Smoking Status: Former Smoker Frequency of alcohol use: None Drug Abuse: None Lives with: Family Family History: CAD, Hypertension Patient has suicidal ideation: No Patient has homicidal ideation: No - Past Medical History Cardiac Medical History: Reports: Hx Hypercholesterolemia, Hx Hypertension Pulmonary Medical History: Reports: Hx Asthma, Hx Bronchitis, Hx COPD - chronic EENT Medical History: Reports: None Neurological Medical History: Reports: Hx Migraine Endocrine Medical History: Reports: Hx Hypothyroidism Renal/ Medical History: Reports: Hx Kidney Stones Malignancy Medical History: Reports: None GI Medical History: Reports: Hx Gastroesophageal Reflux Disease, Hx Hiatal Hernia Musculoskeletal Medical History: Reports Hx Fibromyalgia Skin Medical History: Reports None Psychiatric Medical History: Reports: Hx Anxiety, Hx Depression Traumatic Medical History: Reports: None Infectious Medical History: Reports: None Past Surgical History: Reports: Hx Appendectomy, Hx Breast Surgery - breast augmentation x2, Hx Cholecystectomy, Hx Hysterectomy, Hx Orthopedic Surgery - toe surgery R foot, Hx Tonsillectomy, Hx Tubal Ligation - Immunizations Hx Diphtheria, Pertussis, Tetanus Vaccination: No Hx Pneumococcal Vaccination: 07/08/07 Review of Systems - Review of Systems Constitutional: No symptoms reported EENT: No symptoms reported Cardiovascular: No symptoms reported Respiratory: No symptoms reported Gastrointestinal: No symptoms reported Genitourinary: No symptoms reported Female Genitourinary: No symptoms reported Musculoskeletal: No symptoms reported Skin: No symptoms reported Hematologic/Lymphatic: No symptoms reported Neurological/Psychological: Confusion, Dementia, Weakness, Headaches, Numbness - fingers -: Yes All other systems reviewed and negative Physical Exam - Vital signs Vitals: Temp Pulse Resp BP Pulse Ox 97.7 F 96 16 130/88 H 97 11/03/19 15:56 11/03/19 15:56 11/03/19 15:56 11/03/19 15:56 11/03/19 15:56 Interpretation: Normal - General General appearance: Appears well, Alert - HEENT Head: Normocephalic, Atraumatic Eyes: Normal Pupils: PERRL - Respiratory Respiratory status: No respiratory distress Chest status: Nontender Breath sounds: Normal Chest palpation: Normal - Cardiovascular Rhythm: Regular Heart sounds: Normal auscultation Murmur: No - Abdominal Inspection: Normal Distension: No distension Bowel sounds: Normal Tenderness: Nontender Organomegaly: No organomegaly - Back Back: Normal, Nontender - Extremities General upper extremity: Normal inspection, Nontender, Normal color, Normal ROM, Normal temperature General lower extremity: Normal inspection, Nontender, Normal color, Normal ROM, Normal temperature, Normal weight bearing. No: Carlene's sign - Neurological Neuro grossly intact: Yes Cognition: Normal Orientation: AAOx4 [place] Coma Scale Eye Opening: Spontaneous [place] Coma Scale Verbal: Oriented [place] Coma Scale Motor: Obeys Commands [place] Coma Scale Total: 15 Speech: Normal Cranial nerves: Normal Motor strength normal: LUE, RUE, LLE, RLE Additional motor exam normals: Equal analytics manager Babinski reflex: Normal (flexor plantar) Sensory: Normal - Psychological Associated symptoms: Normal affect, Normal mood - Skin Skin Temperature: Warm Skin Moisture: Dry Skin Color: Normal Course - Re-evaluation Re-evalutation: 11/03/19 22:[address] and x-ray discussed with patient and with patient's daughter via telephone per patient's request. Patient does have mild dementia. I have discussed with patient's daughter that she should follow-up with the doctor that had already started work-up on dementia. Her CT did not show any acute strokes or any acute changes. I did discuss the blood work and sent a copy of the CT x- ray and blood work home with patient for daughter. Patient will be driven home by her daughter. - Vital Signs Vital signs: Temp Pulse Resp BP Pulse Ox 98.1 F 89 22 H 102/81 95 11/03/19 18:01 11/03/19 17:00 11/03/19 19:31 11/03/19 19:31 11/03/19 18:01 - Laboratory Result Diagrams: 11/03/19 16:58 11/03/19 16:58 Laboratory results interpreted by me: 11/03/19 11/03/19 16:58 17:20 Potassium 5.2 H BUN 23 H Creatine Kinase 183 H Urine Blood SMALL H Ur Leukocyte Esterase SMALL H - Diagnostic Test Radiology reviewed: Image reviewed, Reports reviewed Discharge - Discharge Clinical Impression: Dementia Qualifiers: Dementia type: unspecified type Dementia behavioral disturbance: without behavioral disturbance Qualified Code(s): F03.90 - Unspecified dementia without behavioral disturbance Condition: Stable Disposition: HOME, SELF-CARE Additional Instructions: Dementia The exam shows a decrease in mental ability called dementia. Signs of dementia include a gradual loss of memory and a decreased ability to reason and solve problems. Personality changes, hostility, lack of self-care, and loss of bladder or bowel control are later signs of dementia. In these later stages, patients may become confused, lost, fearful, or agitated, even in familiar places. Alzheimer's disease is the most common type of dementia. It has no known cause or specific treatment. Other causes include alcohol and drug abuse, medication effects (especially tranquilizers and sleeping pills), strokes, head injuries, and brain tumors. Sometimes severe depression in an elderly person is mistaken for dementia, and this can be treated if recognized. A complete medical evaluation and ongoing care with a doctor is important. Most people with dementia need help or supervision with daily living. Some may be able to live independently with occasional help; others require foster care or even long term placement. Alcohol, sedatives, and antihistamines may make the symptoms worse and should be avoided. Alzheimer's disease support groups are available in some communities and can be very valuable to the entire family. Prescription medication can ease the symptoms of Alzheimer's disease in some patients. Please arrange for medical follow-up. Return here if there is a sudden change in mental function, inability to move an arm or leg, inability to speak, fever, or any other significant change. I have given you a copy of your labs and CT and x-ray results to take to your primary care doctor. You do need to follow-up and consider any treatments that may be available for early dementia. FOLLOW-UP CARE: If you have been referred to a physician for follow-up care, call the physicians office for an appointment as you were instructed or within the next two days. If you experience worsening or a significant change in your symptoms, notify the physician immediately or return to the Emergency Department at any time for re-evaluation. Forms: Elevated Blood Pressure Referrals: JUSTIN REDDY FNP-C [Primary Care Provider] - Follow up in 3-5 days
--- NOTE | 2019-11-03 16:52 | ER Document Report ---
ED NIH Stroke Scale - NIH Stroke Scale *: 1. NIH scale should be completed with appropriate accompanying assessment tools. *: 2. The NIH should reflect what the patient is capable of doing and should not be coached by the clinician. 1a. Level of Consciousness: 0=Alert;keenly responsive -: 1=Drowsy -: 2=Obtunded -: 3=Coma/unresponsive or reflex to noxious stimuli. 1a. Responses: 0 1b. Orientation Questions: a. What month is it? -: b. How old are you? -: 0=Answers both questions correctly. -: 1=Answers one question correctly or patient is intubated or has orotracheal trauma. -: 2=Answers neither question correctly. 1b. Responses: 0 1c. Response to commands: a. Open and close eyes? -: b. Wood Molder and release hand? -: Credit is given despite weakness. Demonstration of task is permitted. Substitute command if hands cannot be used. -: 0=Performs both tasks correctly -: 1=Performs one task correctly -: 2=Performs neither task correctly 1c. Responses: 0 2. Gaze: Establish eye contact and instruct patient to "Follow my finger" -: 0=Normal -: 1=Partial gaze palsy. Gaze is abnormal in one or both eyes, but where forced deviation or total gaze paresis is not present. -: 2=Forced deviation or total gaze paresis. 2. Responses: 0 3. Visual Kirkpatrick: Sees fingers in all four quadrants. -: 0=No visual loss. -: 1=Partial hemianopsia. -: 2=Complete hemianopsia. -: 3=Bilateral hemianopsia (including Cortical blindness) 3. Responses: 0 4. Facial Movement: Instruct patient to: -: a. Show me your teeth -: b. Raise your eyebrows -: c. Close your eyes -: d. Smile -: 0=Normal symmetrical movement -: 1=Minor paralysis (flattened nasolabial fold, asymmetry on smiling). -: 2=Partial paralysis (total or near total paralysis of lower face). -: 3=Complete paralysis of upper and lower face 4. Responses: 0 5. Motor functions (left arm): Alternate sides and extend each arm with palms down (90 degrees if sitting or 45 degrees for supine). -: 0=No drift;limb holds for full 10 seconds. -: 1=Drift; limb holds but drifts down before full 10 seconds, but does not hit bed. -: 2=Some effort against gravity; limb cannot get to or maintain position. -: 3=No effort against gravity; limb falls. -: 4=No movement. -: UN=Amputation, joint fusion, explain in comments. 5. Responses (left arm): 0 5. Motor Functions (right arm): Alternate sides and extend each arm with palms down (90 degrees if sitting or 45 degrees for supine). -: 0=No drift;limb holds for full 10 seconds. -: 1=Drift; limb holds but drifts down before full 10 seconds, but does not hit bed. -: 2=Some effort against gravity; limb cannot get to or maintain position. -: 3=No effort against gravity; limb falls. -: 4=No movement. -: UN=Amputation, joint fusion, explain in comments. 5. Responses (right arm): 0 6. Motor Functions (left leg): With patient lying supine, alternate sides and extend each leg (30 degrees always while supine). -: 0=No drift, leg holds position for full 5 seconds -: 1=Drift; leg falls before full 5 seconds but does not hit bed. -: 2=Some effort against gravity, leg falls to bed but some effort against gravity. -: 3=No effort against gravity, leg falls to bed immediately. -: 4=No movement. -: UN=Amputation, joint fusion; explain in comments. 6. Responses (left leg): 0 6. Motor Functions (right leg): With patient lying supine, alternate sides and extend each leg (30 degrees always while supine). -: 0=No drift, leg holds position for full 5 seconds -: 1=Drift; leg falls before full 5 seconds but does not hit bed. -: 2=Some effort against gravity, leg falls to bed but some effort against gravity. -: 3=No effort against gravity, leg falls to bed immediately. -: 4=No movement. -: UN=Amputation, joint fusion; explain in comments. 7. Limb Ataxia: With eyes open instruct patient to: -: a. "Touch your finger to your nose". -: b. "Touch your heel to your cee" -: 0=Absent -: 1=Present in one limb. -: 2=Present in two limbs. -: UN=Amputation or joint fusion; explain in comments. 7. Responses: 0 8. Sensory: Test sensation using pinprick or noxious stimuli. Test as many body parts as possible. -: 0=Normal;no sensory loss -: 1=Mile to moderate sensory loss (patient feels pin prick but is less sharp on affected side). -: 2=Severe or total sensory loss. 8. Responses: 0 9. Best Language: Instruct patient to: -: a. "Describe what you see in this picture." -: b. "Name the items in this picture." -: c. "Read these sentences." -: 0=No aphasia, normal -: 1=Mild to moderate aphasia. -: 2=Severe aphasia -: 3=Mute, global aphasia, no usable speech or auditory comprehension. 9. Responses: 1 10. Articulation, Dysarthia: Instruct patient to: -: "Read these words" or "Repeat these words" -: 0=Normal -: 1=Mild to moderate; patient may slur some words but can be understood without difficulty. -: 2=Severe; patients speech so slurred as to be unintelligible in the absence of dysphasia. -: UN=Intubated or other physical barrier, explain in comments. 10. Responses: 0 11. Extinction or inattention: 0=No abnormality -: 1= Visual, tactile, auditory, spatial, or personal inattention or extinction to bilateral simulation in one or the sensory modalities. -: 2=Profound lion-inattention or lion-inattention to more than one modality; does not recognize own hand. 11. Responses: 0 Total Score: 1
[2019-11-03 17:34] LABS: INTERNATIONAL RATION (INR) 0.93; PROTHROMBIN TIME 12.5 SEC (11.4-15.4)
[2019-11-03 17:44] LABS: ABSOLUTE BASOPHILS # (AUTO) 0.1 10^3/uL (0.0-0.2); ABSOLUTE EOSINOPHILS # (AUTO) 0.2 10^3/uL (0.0-0.6); ABSOLUTE LYMPHOCYTES (AUTO) 2.2 10^3/uL (0.5-4.7); ABSOLUTE MONOCYTES (AUTO) 0.8 10^3/uL (0.1-1.4); BASOPHILS % (AUTO) 0.9 % (0-2); EOSINOPHILS % (AUTO) 2.6 % (0-6); HEMATOCRIT 45.1 % (36.0-47.0); HEMOGLOBIN 15.4 g/dL (12.0-15.5); LYMPHOCYTES % (AUTO) 26.3 % (13-45); MEAN CORPUSCULAR HEMOGLOBIN 30.8 pg (27.0-33.4); MEAN CORPUSCULAR HGB CONC 34.1 g/dL (32.0-36.0); MEAN CORPUSCULAR VOLUME 90 fl (80-97); MONOCYTES % (AUTO) 10.2 % (3-13); PLATELET COUNT 336 10^3/uL (150-450); RED CELL DISTRIBUTION WIDTH 13.8 % (11.5-14.0); TOTAL CELLS COUNTED % (AUTO) 100 %; WHITE BLOOD COUNT 8.3 10^3/uL (4.0-10.5)
[2019-11-03 18:05] LABS: APPEARANCE,URINE CLOUDY; BILIRUBIN,URINE NEGATIVE (NEGATIVE); COLOR,URINE YELLOW; GLUCOSE, URINE NEGATIVE (NEGATIVE); KETONES,URINE NEGATIVE (NEGATIVE); LEUKOCYTE ESTERASE,URINE SMALL (NEGATIVE); NITRITE,URINE NEGATIVE (NEGATIVE); PROTEIN,URINE NEGATIVE (NEGATIVE); URINE SPECIFIC GRAVITY 1.023; UROBILINOGEN,URINE NEGATIVE mg/dL (<2.0)
[2019-11-03 18:17] LABS: ALBUMIN 4.7 g/dL (3.5-5.0); ALKALINE PHOSPHATASE 83 U/L (38-126); ANION GAP 9 (5-19); ASPARTATE AMINO TRANSFERASE 35 U/L (14-36); BILIRUBIN,TOTAL 0.6 mg/dL (0.2-1.3); BLOOD UREA NITROGEN 23 mg/dL (7-20); CALCIUM 10.1 mg/dL (8.4-10.2); CARBON DIOXIDE 30 mmol/L (22-30); CHLORIDE 100 mmol/L (98-107); GLUCOSE 102 mg/dL (75-110); POTASSIUM 5.2 mmol/L (3.6-5.0); TOTAL PROTEIN 7.4 g/dL (6.3-8.2)
[2019-11-03 18:29] LABS: CREATINE KINASE MB 3.08 ng/mL (<4.55)
[2019-11-03 18:30] LABS: TROPONIN I < 0.012 ng/mL
[2019-11-03 19:07] LABS: CREATINE KINASE 183 U/L (30-135)
[2019-11-03 19:43] VITALS: BP 102/81
--- NOTE | 2019-11-04 08:16 | EKG REPORT ---
SEVERITY:- OTHERWISE NORMAL ECG - SINUS RHYTHM LOW VOLTAGE IN FRONTAL LEADS : Confirmed by: Jaycee Ventura MD 04-Nov-2019 08:15:46
== END 2019-11-03 19:45 | disposition home or self-care (01) ==
LOC: ER 15:50
DX: F03.90 Unspecified dementia, unspecified severity, without behavioral disturbance, psychotic disturbance, mood disturbance, and anxiety (principal); R51 Headache; R11.0 Nausea; R20.0 Anesthesia of skin; R53.1 Weakness; I10 Essential (primary) hypertension; J44.9 Chronic obstructive pulmonary disease, unspecified; Z91.040 Latex allergy status; Z91.010 Allergy to peanuts; Z91.048 Other nonmedicinal substance allergy status; Z87.891 Personal history of nicotine dependence
CPT/HCPCS: 36415; 70450; 71045; 80053; 81001; 82550; 82553; 84484; 85025; 85610; 85730; 93005; 93010; 99285

== ENCOUNTER → 2020-04-27 | Outpatient (CLI) | payer MEDICARE, MEDICAID ==
[2020-04-27 15:12] LABS: ARTERIAL BLOOD BASE EXCESS 0.9 mmol/L; ARTERIAL BLOOD H2CO3 1.19 mmol/L (1.05-1.35); ARTERIAL BLOOD HCO3 25.3 mmol/L (20-24); ARTERIAL BLOOD O2 SATURATION 98.5 % (94-98); ARTERIAL BLOOD PCO2 39.5 mmHg (35-45); ARTERIAL BLOOD PH 7.42 (7.35-7.45); ARTERIAL BLOOD PO2 123.5 mmHg (80-100); ARTERIAL BLOOD TOTAL CO2 26.5 mmol/L (21-25)
[2020-04-27 15:17] LABS: ARTERIAL BLOOD FIO2 2L
== END ==
LOC: OD 13:37
PROVIDERS: ATTEND Internal Medicine Pulmonary Disease
DX: J96.11 Chronic respiratory failure with hypoxia (principal)
CPT/HCPCS: 82803

== ENCOUNTER → 2020-07-25 | Outpatient (CLI) | payer MEDICARE, MEDICAID | LOC: OD 15:14 | PROVIDERS: ATTEND Internal Medicine Pulmonary Disease | DX: I50.9 Heart failure, unspecified (principal) | CPT/HCPCS: 36415; 83880 ==